=== PATIENT | female | born 1960 | race Caucasian/White ===

== ENCOUNTER → 2016-04-23 | Outpatient (CLI) | payer OTHER ==
[2016-04-23 19:12] LABS: BASO # 0.1 K/mm3 (0.0-0.2); BASO % 1.5 % (0.0-1.0); EOS # 0.4 K/mm3 (0.0-0.50); EOS % 5.1 % (0.0-3.0); LARGE UNSTAINED CELL # 0.2 K/mm3 (0.0-0.4); LYMPH # 1.9 K/mm3 (1.5-4.5); LYMPH % 20.3 % (24.0-44.0); MEAN CORPUSCULAR HEMOGLOBIN 27.5 pg (27.0-33.0); MEAN CORPUSCULAR HGB CONC 33.3 g/dl (32.0-36.5); MEAN CORPUSCULAR VOLUME 82.4 fl (80.0-96.0); MONO # 0.4 K/mm3 (0.0-0.8); MONO % 4.9 % (0.0-5.0); NEUTROPHILS # 5.6 K/mm3 (1.8-7.7); NEUTROPHILS % 66.1 % (36.0-66.0); PLATELET COUNT, AUTOMATED 348 k/mm3 (150-450); RED CELL DISTRIBUTION WIDTH 15.1 % (11.5-14.5); WHITE BLOOD COUNT 8.5 K/mm3 (4.0-10.0)
[2016-04-23 19:24] LABS: ALBUMIN/GLOBULIN RATIO 1.21 (1.00-1.93); ALKALINE PHOSPHATASE 81 U/L (45-117); ALT/SGPT 25 U/L (12-78); ANION GAP 9 MEQ/L (8-16); AST/SGOT 25 U/L (15-37); BILIRUBIN,TOTAL 0.6 MG/DL (0.2-1.0); BLOOD UREA NITROGEN 19 MG/DL (7-18); CALCIUM LEVEL 8.9 MG/DL (8.5-10.1); CARBON DIOXIDE LEVEL 26 MEQ/L (21-32); CHLORIDE LEVEL 109 MEQ/L (98-107); CREATININE FOR GFR 0.97 MG/DL (0.55-1.02); GLOMERULAR FILTRATION RATE > 60.0 (>51); GLUCOSE, FASTING 91 MG/DL (70-105); SODIUM LEVEL 144 MEQ/L (136-145); TOTAL PROTEIN 7.3 GM/DL (6.4-8.2)
== END ==
LOC: M WUC 09:27
PROVIDERS: ATTEND Family Medicine
DX: R73.01 Impaired fasting glucose (principal); E55.9 Vitamin D deficiency, unspecified; M19.049 Primary osteoarthritis, unspecified hand

== ENCOUNTER 2016-05-05 15:04 | Emergency (ER) | payer OTHER ==
[2016-05-05] MEDS ORDERED: LIDOCAINE VISCOUS 2% SOLN 15ML UDC As Ordered ONE (16:54)
[2016-05-05] MEDS ORDERED: NORCO, ANEXSIA 5/325MG TABLET (HYDROcodone/ACETAMINOPHEN) As Ordered ONE (16:55)
--- NOTE | 2016-05-05 17:12 | EDDOCDS ---
Nurse's Notes [facility] Name: Heaven Cleveland Age: 56 yrs Sex: Female : 1960 Arrival Date: 05/05/2016 Time: 15:04 Bed TR2 Private MD: Desomnd Gonsales E. Diagnosis: Zoster [herpes zoster] Presentation: 05/05 15:22 Presenting complaint: Patient states: she is being treated for a sinus infection and kcs ear infection - the next day she had white on her tongue - also has sore on her lips and chin - now has a headache. Tongue is covered with more white and is swollen. Adult Sepsis Screening: The patient does not have new or worsening altered mentation. Patient's respiratory rate is less than 22. Systolic blood pressure is greater than 100. Patient has a qSOFA score of 0- Negative Sepsis Screen. Suicide/Homicide risk assessment- the patient denies having any suicidal and/or homicidal ideations and does not present with any other emotional, behavioral or mental health complaints. Status: Patient is not a x ray service technician or dependent. Transition of care: patient was not received from another setting of care. 15:22 Acuity: SANGEETA Level 3 kcs 15:22 Method Of Arrival: Walkin/Carried/Asstd kcs 17:11 This patient has no additional risk factors. [facility] Triage Assessment: 15:28 Headache History: This patient has a history of headaches and the character of this kcs headache is like all previous headaches. General: Appears comfortable, well developed, well nourished, well groomed, Behavior is cooperative, pleasant. Pain: Location: right forehead and into the back of her head Pain currently is 10 out of 10 on a pain scale. HIV screening NA for this visit Offered previously. Neurological: Level of Consciousness is awake, alert. Respiratory: Airway is patent Respiratory effort is even, unlabored, Respiratory pattern is regular, symmetrical. Derm: Skin is intact, is healthy with good turgor, Skin is dry, Skin is normal. Historical: - Allergies: Tramadol HCl (heart racing); - Home Meds: 1. aspirin 81 mg Oral tab 1 tab nightly 2. Elmiron 100 mg oral tab 1 cap 3 times per day as needed 3. lotrisone cream twice a day as needed 4. multivitamin Oral tab daily 5. simvastatin 20 mg Oral tab once daily for Hypercholesterolemia 6. Vitamin D Oral 2000 unit daily 7. amoxicillin 875 mg Oral tab 1 tab every 12 hours started 05/03 8. doxy/nysta/hydro/banop syrup 4x a day - started yesterday 9. has not had regular meds in 2 days - PMHx: Diverticulosis; Endometriosis; Hypercholesterolemia; Interstitial Cystitis; Irritable bowel syndrome; UTI's, Frequent; - PSHx: Cholecystectomy (September 2013); Colonoscopy (2010); - Social history: Smoking status: Patient states was never smoker of tobacco. No barriers to communication noted, The patient speaks fluent [place]. - Family history: No immediate family members are acutely ill. - : The pt / caregiver states he / she is not on anticoagulants. Home medication list is obtained from the patient, [employer] import data. - Exposure Risk Screening:: None identified. Screenin:08 Screening information is obtained from the patient. Fall risk: No risks identified. dwg Assistance ADL's: requires no assistance with activities of daily living. Abuse/DV Screen: The patient / caregiver reports he/she is: not in a situation that causes fear, pain or injury. Nutritional screening: No deficits noted. Advance Directives: Currently, there is no health care proxy. There is no active DNR order. There is no living will. There is no Power of Plant Production Worker. Advance directive information has not previously been placed in an [facility] medical record. Further advance directive information is declined. home support is adequate. Assessment: 17:07 General: Appears in no apparent distress, Behavior is cooperative, pleasant. Pain: Pain dwg currently is 5 out of 10 on a pain scale. Neurological: Level of Consciousness is awake, alert, Oriented to person, place, time. Respiratory: Airway is patent Respiratory effort is even, unlabored, Respiratory pattern is regular, symmetrical, Breath sounds are clear bilaterally. Derm: Vital Signs: 15:07 BP 144 / 90; Pulse 108; Resp 20; Temp 98.4(O); Pulse Ox 98% on R/A; Weight 86.18 kg elp (R); Height 5 ft. 5 in. (165.10 cm) (R); Pain 10/10; 16:37 BP 149 / 94; Pulse 106; Resp 18; Temp 99.8(O); Pulse Ox 97% on R/A; Pain 10/10; mdr 15:07 Body Mass Index 31.62 (86.18 kg, 165.10 cm) [facility] Vitals: 15:07 Log In Time: May 05, 2016 at 15:05. [facility] ED Course: 15:06 Patient visited by Didi Renee PCA. elp 15:06 Desmond Gonsales is Private Physician. elp 15:06 Patient moved to Waiting elp 15:07 Patient visited by Didi Renee PCA. elp 15:07 Patient moved to Pre RCE elp 15:25 Triage Initiated kcs 16:11 Patient moved to Triage 1 mdr 16:15 Scott Horvath PA is PHCP. mo1 16:15 Gita Montalvo MD is Attending Physician. mo1 16:36 Patient visited by Scott Horvath PA. mo1 16:37 Vel Deras is Referral Physician. mo1 16:41 Patient visited by Emile Soliz PCA. mdr 16:45 [facility] Payment Agreement was scanned into [employer] and attached to record. gjb 17:06 Patient moved to TR2 [facility] 17:10 No IV's were initiated during this patient's visit. No procedures done that require dwg assistance. 17:11 Patient visited by Michael Montaño RN. dwg 17:11 The patient / caregiver is instructed regarding the plan of care and ED course. dwg Administered Medications: 17:10 Drug: Lidocaine Viscous 15 ml [Lidocaine Viscous 2 % mucosal solution (15 mL)] Route: dwg Mucous Membrane; Site: affected area; 17:10 Drug: valACYclovir 1000 mg [valacyclovir 500 mg tablet (2 tabs)] Route: PO; dwg 17:10 Drug: HYDROcodone-acetaminophen 1 tabs [hydrocodone 5 mg-acetaminophen 325 mg tablet (1 dwg tabs)] Route: PO; Order Results: There are currently no results for this order. Outcome: 16:37 Discharge ordered by Provider. mo1 17:09 Discharge Assessment: Patient awake, alert and oriented x 3. No cognitive and/or dwg functional deficits noted. Patient verbalized understanding of disposition instructions. patient administered narcotics - yes. Pt provided with safe discharge. The following High Risk Discharge criteria are identified: None. Condition: good Condition: stable. No special radiology studies were completed. Property sent home with patient. 17:11 Patient left the ED. dw Signatures: Tara Suarez, RN RN Michael Sandoval RN RN Marilia Heart RN RN Scott Deleon PA PA mo1 Didi Renee, SUPERVISOR IN CIRCUIT TESTING SUPERVISOR IN CIRCUIT TESTING elp Emile Soliz, SUPERVISOR IN CIRCUIT TESTING SUPERVISOR IN CIRCUIT TESTING mdr Mar Nguyen MTDD
--- NOTE | 2016-05-05 17:12 | EDDOCDS ---
Physician Documentation [facility] Name: Heaven Cleveland Age: 56 yrs Sex: Female : 1960 Arrival Date: 05/05/2016 Time: 15:04 Bed TR2 Private MD: Desmond Gonsales E. Disposition: 05/05/16 16:37 Discharged to Home/Self Care. Impression: Zoster [herpes zoster]. - Condition is Stable. - Discharge Instructions: Shingles, Thrush, Adult. - Prescriptions for Lidocaine Viscous - take 1 Teaspoon by BUCCAL route every 6 hours; 200 Teaspoon. Perryman 5- 325 mg Oral Tablet - take 1 tablet by ORAL route every 6 hours As needed MDD: 4 tabs; 20 tablet. Nystatin 100,000 unit/mL Oral Suspension - take 5 milliliter by ORAL route every 6 hours; 120 milliliter. Valtrex 1 g Oral Tablet - take 1 tablet by ORAL route every 8 hours for 7 days; 21 tablet. - Medication Reconciliation, Local Pharmacy Hours, Work Release Form - 3 day form. - Follow up: Vel Deras; When: Call to arrange an appointment; Reason: Wound/Symptom Recheck. - Problem is new. - Symptoms are unchanged. Historical: - Allergies: Tramadol HCl (heart racing); - Home Meds: 1. aspirin 81 mg Oral tab 1 tab nightly 2. Elmiron 100 mg oral tab 1 cap 3 times per day as needed 3. lotrisone cream twice a day as needed 4. multivitamin Oral tab daily 5. simvastatin 20 mg Oral tab once daily for Hypercholesterolemia 6. Vitamin D Oral 2000 unit daily 7. amoxicillin 875 mg Oral tab 1 tab every 12 hours started 05/03 8. doxy/nysta/hydro/banop syrup 4x a day - started yesterday 9. has not had regular meds in 2 days - PMHx: Diverticulosis; Endometriosis; Hypercholesterolemia; Interstitial Cystitis; Irritable bowel syndrome; UTI's, Frequent; - PSHx: Cholecystectomy (September 2013); Colonoscopy (2010); - Social history: Smoking status: Patient states was never smoker of tobacco. No barriers to communication noted, The patient speaks fluent [place]. - Family history: No immediate family members are acutely ill. - : The pt / caregiver states he / she is not on anticoagulants. Home medication list is obtained from the patient, [employer] import data. - Exposure Risk Screening:: None identified. Vital Signs: 05/05 15:07 BP 144 / 90; Pulse 108; Resp 20; Temp 98.4(O); Pulse Ox 98% on R/A; Weight 86.18 kg / elp 189.99 lbs (R); Height 5 ft. 5 in. (165.10 cm) (R); Pain 10/10; 16:37 BP 149 / 94; Pulse 106; Resp 18; Temp 99.8(O); Pulse Ox 97% on R/A; Pain 10/10; mdr 15:07 Body Mass Index 31.62 (86.18 kg, 165.10 cm) elp MDM: 16:36 Lidocaine Viscous Liquid 2 % 15 ml Mucous Membrane in affected area once ordered. mo1 16:36 valACYclovir 1000 mg PO once ordered. mo1 16:36 HYDROcodone-acetaminophen 5 mg-325 mg 1 tabs PO once ordered. mo1 16:42 Financial registration complete. ryan 16:45 [facility] Payment Agreement was scanned into [employer] and attached to record. gjb Administered Medications: 17:10 Drug: Lidocaine Viscous 15 ml [Lidocaine Viscous 2 % mucosal solution (15 mL)] Route: dwg Mucous Membrane; Site: affected area; 17:10 Drug: valACYclovir 1000 mg [valacyclovir 500 mg tablet (2 tabs)] Route: PO; dwg 17:10 Drug: HYDROcodone-acetaminophen 1 tabs [hydrocodone 5 mg-acetaminophen 325 mg tablet (1 dwg tabs)] Route: PO; Signatures: Tara Suarez RN RN kcs Greene, Daniel, RN RN Scott Cardenas PA PA mo1 Mar Nguyen The chart was reviewed and I authenticate all verbal orders and agree with the evaluation and treatment provided.Attachments: 16:45 [facility] [place] ryan [facility]
[2016-05-06] MEDS ORDERED: LOTRCRE TOP (08:41)
[2016-05-06] MEDS ORDERED: ASPI81TA85 PO (08:41)
[2016-05-06] MEDS ORDERED: LIDVISCBTL SSP (08:41)
[2016-05-06] MEDS ORDERED: PENT10CA PO (08:41)
[2016-05-06] MEDS ORDERED: NORC5TAB PO (08:41)
[2016-05-06] MEDS ORDERED: VITA20008 PO (08:41)
[2016-05-06] MEDS ORDERED: VITMTA PO (08:41)
[2016-05-06] MEDS ORDERED: VALT1TAB PO (08:41)
[2016-05-06] MEDS ORDERED: SIMV20TA2 PO (08:41)
[2016-05-06] MEDS ORDERED: NYST50SS SS (08:41)
[2016-05-06] MEDS ORDERED: [UNRECOGNIZED DRUG - CODE] INJ (08:45)
--- NOTE | 2016-05-07 18:13 | EDDOCDS ---
Nurse's Notes [facility] Name: Heaven Cleveland Age: 56 yrs Sex: Female : 1960 Arrival Date: 05/05/2016 Time: 15:04 Bed TR2 Private MD: Desmond Gonsales E. Diagnosis: Zoster [herpes zoster] Presentation: 05/05 15:22 Presenting complaint: Patient states: she is being treated for a sinus infection and kcs ear infection - the next day she had white on her tongue - also has sore on her lips and chin - now has a headache. Tongue is covered with more white and is swollen. Adult Sepsis Screening: The patient does not have new or worsening altered mentation. Patient's respiratory rate is less than 22. Systolic blood pressure is greater than 100. Patient has a qSOFA score of 0- Negative Sepsis Screen. Suicide/Homicide risk assessment- the patient denies having any suicidal and/or homicidal ideations and does not present with any other emotional, behavioral or mental health complaints. Status: Patient is not a dining service inspector or dependent. Transition of care: patient was not received from another setting of care. 15:22 Acuity: SANGEETA Level 3 kcs 15:22 Method Of Arrival: Walkin/Carried/Asstd kcs 17:11 This patient has no additional risk factors. [facility] Triage Assessment: 15:28 Headache History: This patient has a history of headaches and the character of this kcs headache is like all previous headaches. General: Appears comfortable, well developed, well nourished, well groomed, Behavior is cooperative, pleasant. Pain: Location: right forehead and into the back of her head Pain currently is 10 out of 10 on a pain scale. HIV screening NA for this visit Offered previously. Neurological: Level of Consciousness is awake, alert. Respiratory: Airway is patent Respiratory effort is even, unlabored, Respiratory pattern is regular, symmetrical. Derm: Skin is intact, is healthy with good turgor, Skin is dry, Skin is normal. Historical: - Allergies: Tramadol HCl (heart racing); - Home Meds: 1. aspirin 81 mg Oral tab 1 tab nightly 2. Elmiron 100 mg oral tab 1 cap 3 times per day as needed 3. lotrisone cream twice a day as needed 4. multivitamin Oral tab daily 5. simvastatin 20 mg Oral tab once daily for Hypercholesterolemia 6. Vitamin D Oral 2000 unit daily 7. amoxicillin 875 mg Oral tab 1 tab every 12 hours started 05/03 8. doxy/nysta/hydro/banop syrup 4x a day - started yesterday 9. has not had regular meds in 2 days - PMHx: Diverticulosis; Endometriosis; Hypercholesterolemia; Interstitial Cystitis; Irritable bowel syndrome; UTI's, Frequent; - PSHx: Cholecystectomy (September 2013); Colonoscopy (2010); - Social history: Smoking status: Patient states was never smoker of tobacco. No barriers to communication noted, The patient speaks fluent East Timorese. - Family history: No immediate family members are acutely ill. - : The pt / caregiver states he / she is not on anticoagulants. Home medication list is obtained from the patient, [employer] import data. - Exposure Risk Screening:: None identified. Screenin:08 Screening information is obtained from the patient. Fall risk: No risks identified. dwg Assistance ADL's: requires no assistance with activities of daily living. Abuse/DV Screen: The patient / caregiver reports he/she is: not in a situation that causes fear, pain or injury. Nutritional screening: No deficits noted. Advance Directives: Currently, there is no health care proxy. There is no active DNR order. There is no living will. There is no Power of Damaged Freight Inspector. Advance directive information has not previously been placed in an [facility] medical record. Further advance directive information is declined. home support is adequate. Assessment: 17:07 General: Appears in no apparent distress, Behavior is cooperative, pleasant. Pain: Pain dwg currently is 5 out of 10 on a pain scale. Neurological: Level of Consciousness is awake, alert, Oriented to person, place, time. Respiratory: Airway is patent Respiratory effort is even, unlabored, Respiratory pattern is regular, symmetrical, Breath sounds are clear bilaterally. Derm: Vital Signs: 15:07 BP 144 / 90; Pulse 108; Resp 20; Temp 98.4(O); Pulse Ox 98% on R/A; Weight 86.18 kg elp (R); Height 5 ft. 5 in. (165.10 cm) (R); Pain 10/10; 16:37 BP 149 / 94; Pulse 106; Resp 18; Temp 99.8(O); Pulse Ox 97% on R/A; Pain 10/10; mdr 15:07 Body Mass Index 31.62 (86.18 kg, 165.10 cm) [facility] Vitals: 15:07 Log In Time: May 05, 2016 at 15:05. [facility] ED Course: 15:06 Patient visited by Didi Renee, ELYSE. elp 15:06 Desmond Gonsales is Private Physician. elp 15:06 Patient moved to Waiting elp 15:07 Patient visited by Didi Renee PCA. elp 15:07 Patient moved to Pre RCE elp 15:25 Triage Initiated kcs 16:11 Patient moved to Triage 1 mdr 16:15 Scott Horvath PA is PHCP. mo1 16:15 Gita Montalvo MD is Attending Physician. mo1 16:36 Patient visited by Scott Horvath PA. mo1 16:37 Vel Deras is Referral Physician. mo1 16:41 Patient visited by Emile Soliz PCA. mdr 16:45 [facility] [place] was scanned into [employer] and attached to record. gjb 17:06 Patient moved to TR2 [facility] 17:10 No IV's were initiated during this patient's visit. No procedures done that require dwg assistance. 17:11 Patient visited by Michael Montaño RN. dwg 17:11 The patient / caregiver is instructed regarding the plan of care and ED course. g 02 10:46 T-Sheet-- Draft Copy was scanned into [employer] and attached to record. gb Administered Medications: 05/05 17:10 Drug: Lidocaine Viscous 15 ml [Lidocaine Viscous 2 % mucosal solution (15 mL)] Route: dwg Mucous Membrane; Site: affected area; 17:10 Drug: valACYclovir 1000 mg [valacyclovir 500 mg tablet (2 tabs)] Route: PO; dwg 17:10 Drug: HYDROcodone-acetaminophen 1 tabs [hydrocodone 5 mg-acetaminophen 325 mg tablet (1 dwg tabs)] Route: PO; Order Results: There are currently no results for this order. Outcome: 16:37 Discharge ordered by Provider. mo1 17:09 Discharge Assessment: Patient awake, alert and oriented x 3. No cognitive and/or dwg functional deficits noted. Patient verbalized understanding of disposition instructions. patient administered narcotics - yes. Pt provided with safe discharge. The following High Risk Discharge criteria are identified: None. Condition: good Condition: stable. No special radiology studies were completed. Property sent home with patient. 17:11 Patient left the ED. [facility] Signatures: Tara Suarez, RN RN Michael Sandoval RN RN dwg Jobson, Karen, RN RN Olive Amaya, Reg Reg gb Yuliet, Scott, ANAI PA mo1 Didi Renee, HELP DESK ENGINEER HELP DESK ENGINEER sundayp Emile Soliz, HELP DESK ENGINEER HELP DESK ENGINEER Mar Stout Chart Complete MTDD
--- NOTE | 2016-05-07 18:13 | EDDOCDS ---
Physician Documentation [facility] Name: Heaven Cleveland Age: 56 yrs Sex: Female : 1960 Arrival Date: 05/05/2016 Time: 15:04 Bed TR2 Private MD: Desmond Gonsales E. Disposition: 05/05/16 16:37 Discharged to Home/Self Care. Impression: Zoster [herpes zoster]. - Condition is Stable. - Discharge Instructions: Shingles, Thrush, Adult. - Prescriptions for Lidocaine Viscous - take 1 Teaspoon by BUCCAL route every 6 hours; 200 Teaspoon. Secretary 5- 325 mg Oral Tablet - take 1 tablet by ORAL route every 6 hours As needed MDD: 4 tabs; 20 tablet. Nystatin 100,000 unit/mL Oral Suspension - take 5 milliliter by ORAL route every 6 hours; 120 milliliter. Valtrex 1 g Oral Tablet - take 1 tablet by ORAL route every 8 hours for 7 days; 21 tablet. - Medication Reconciliation, Local Pharmacy Hours, Work Release Form - 3 day form. - Follow up: Vel eDras; When: Call to arrange an appointment; Reason: Wound/Symptom Recheck. - Problem is new. - Symptoms are unchanged. Historical: - Allergies: Tramadol HCl (heart racing); - Home Meds: 1. aspirin 81 mg Oral tab 1 tab nightly 2. Elmiron 100 mg oral tab 1 cap 3 times per day as needed 3. lotrisone cream twice a day as needed 4. multivitamin Oral tab daily 5. simvastatin 20 mg Oral tab once daily for Hypercholesterolemia 6. Vitamin D Oral 2000 unit daily 7. amoxicillin 875 mg Oral tab 1 tab every 12 hours started 05/03 8. doxy/nysta/hydro/banop syrup 4x a day - started yesterday 9. has not had regular meds in 2 days - PMHx: Diverticulosis; Endometriosis; Hypercholesterolemia; Interstitial Cystitis; Irritable bowel syndrome; UTI's, Frequent; - PSHx: Cholecystectomy (September 2013); Colonoscopy (2010); - Social history: Smoking status: Patient states was never smoker of tobacco. No barriers to communication noted, The patient speaks fluent Belizean. - Family history: No immediate family members are acutely ill. - : The pt / caregiver states he / she is not on anticoagulants. Home medication list is obtained from the patient, [email or web address] import data. - Exposure Risk Screening:: None identified. Vital Signs: 05/05 15:07 BP 144 / 90; Pulse 108; Resp 20; Temp 98.4(O); Pulse Ox 98% on R/A; Weight 86.18 kg / elp 189.99 lbs (R); Height 5 ft. 5 in. (165.10 cm) (R); Pain 10/10; 16:37 BP 149 / 94; Pulse 106; Resp 18; Temp 99.8(O); Pulse Ox 97% on R/A; Pain 10/10; mdr 15:07 Body Mass Index 31.62 (86.18 kg, 165.10 cm) elp MDM: 16:36 Lidocaine Viscous Liquid 2 % 15 ml Mucous Membrane in affected area once ordered. mo1 16:36 valACYclovir 1000 mg PO once ordered. mo1 16:36 HYDROcodone-acetaminophen 5 mg-325 mg 1 tabs PO once ordered. mo1 16:42 Financial registration complete. [facility] 16:45 [facility] Payment Agreement was scanned into [employer] and attached to record. [facility] 05/06 10:46 T-Sheet-- Draft Copy was scanned into [employer] and attached to record. gb Administered Medications: 05/05 17:10 Drug: Lidocaine Viscous 15 ml [Lidocaine Viscous 2 % mucosal solution (15 mL)] Route: dwg Mucous Membrane; Site: affected area; 17:10 Drug: valACYclovir 1000 mg [valacyclovir 500 mg tablet (2 tabs)] Route: PO; g 17:10 Drug: HYDROcodone-acetaminophen 1 tabs [hydrocodone 5 mg-acetaminophen 325 mg tablet (1 dwg tabs)] Route: PO; Signatures: Tara Suarez RN RN kcs Greene, Daniel, RN RN dwg Barnhardt, Gloria, Todd Reg Scott Fields PA PA mo1 Mar Nguyen The chart was reviewed and I authenticate all verbal orders and agree with the evaluation and treatment provided.Attachments: 16:45 [facility] Payment Agreement [facility] 05/06 10:46 T-Sheet-- Draft Copy gb Chart Complete MTDD
--- NOTE | 2016-05-07 18:13 | EDDOCDS ---
Physician Documentation [facility] Name: Heaven Cleveland Age: 56 yrs Sex: Female : 1960 Arrival Date: 05/05/2016 Time: 15:04 Bed TR2 Private MD: Desmond Gonsales E. Disposition: 05/05/16 16:37 Discharged to Home/Self Care. Impression: Zoster [herpes zoster]. - Condition is Stable. - Discharge Instructions: Shingles, Thrush, Adult. - Prescriptions for Lidocaine Viscous - take 1 Teaspoon by BUCCAL route every 6 hours; 200 Teaspoon. Chadwick 5- 325 mg Oral Tablet - take 1 tablet by ORAL route every 6 hours As needed MDD: 4 tabs; 20 tablet. Nystatin 100,000 unit/mL Oral Suspension - take 5 milliliter by ORAL route every 6 hours; 120 milliliter. Valtrex 1 g Oral Tablet - take 1 tablet by ORAL route every 8 hours for 7 days; 21 tablet. - Medication Reconciliation, Local Pharmacy Hours, Work Release Form - 3 day form. - Follow up: Vel Deras; When: Call to arrange an appointment; Reason: Wound/Symptom Recheck. - Problem is new. - Symptoms are unchanged. Historical: - Allergies: Tramadol HCl (heart racing); - Home Meds: 1. aspirin 81 mg Oral tab 1 tab nightly 2. Elmiron 100 mg oral tab 1 cap 3 times per day as needed 3. lotrisone cream twice a day as needed 4. multivitamin Oral tab daily 5. simvastatin 20 mg Oral tab once daily for Hypercholesterolemia 6. Vitamin D Oral 2000 unit daily 7. amoxicillin 875 mg Oral tab 1 tab every 12 hours started 05/03 8. doxy/nysta/hydro/banop syrup 4x a day - started yesterday 9. has not had regular meds in 2 days - PMHx: Diverticulosis; Endometriosis; Hypercholesterolemia; Interstitial Cystitis; Irritable bowel syndrome; UTI's, Frequent; - PSHx: Cholecystectomy (September 2013); Colonoscopy (2010); - Social history: Smoking status: Patient states was never smoker of tobacco. No barriers to communication noted, The patient speaks fluent [place]. - Family history: No immediate family members are acutely ill. - : The pt / caregiver states he / she is not on anticoagulants. Home medication list is obtained from the patient, [employer] import data. - Exposure Risk Screening:: None identified. Vital Signs: 05/05 15:07 BP 144 / 90; Pulse 108; Resp 20; Temp 98.4(O); Pulse Ox 98% on R/A; Weight 86.18 kg / elp 189.99 lbs (R); Height 5 ft. 5 in. (165.10 cm) (R); Pain 10/10; 16:37 BP 149 / 94; Pulse 106; Resp 18; Temp 99.8(O); Pulse Ox 97% on R/A; Pain 10/10; mdr 15:07 Body Mass Index 31.62 (86.18 kg, 165.10 cm) elp MDM: 16:36 Lidocaine Viscous Liquid 2 % 15 ml Mucous Membrane in affected area once ordered. mo1 16:36 valACYclovir 1000 mg PO once ordered. mo1 16:36 HYDROcodone-acetaminophen 5 mg-325 mg 1 tabs PO once ordered. mo1 16:42 Financial registration complete. [facility] 16:45 [facility] Payment Agreement was scanned into [employer] and attached to record. [facility] 05/06 10:46 T-Sheet-- Draft Copy was scanned into [employer] and attached to record. gb Administered Medications: 05/05 17:10 Drug: Lidocaine Viscous 15 ml [Lidocaine Viscous 2 % mucosal solution (15 mL)] Route: dwg Mucous Membrane; Site: affected area; 17:10 Drug: valACYclovir 1000 mg [valacyclovir 500 mg tablet (2 tabs)] Route: PO; g 17:10 Drug: HYDROcodone-acetaminophen 1 tabs [hydrocodone 5 mg-acetaminophen 325 mg tablet (1 dwg tabs)] Route: PO; Signatures: Tara Suarez RN RN kcs Greene, Daniel, RN RN dwg Barnhardt, Gloria, Todd Reg Scott Fields PA PA mo1 Mar Nguyen The chart was reviewed and I authenticate all verbal orders and agree with the evaluation and treatment provided.Attachments: 16:45 [facility] Payment Agreement [facility] 05/06 10:46 T-Sheet-- Draft Copy gb Chart Complete MTDD
== END 2016-05-05 17:11 | disposition home or self-care (01) ==
LOC: M ED 15:04
DX: B02.9 Zoster without complications (principal); R51 Headache; N80.9 Endometriosis, unspecified; E78.00 Pure hypercholesterolemia, unspecified; N30.10 Interstitial cystitis (chronic) without hematuria; K58.9 Irritable bowel syndrome, unspecified; Z87.19 Personal history of other diseases of the digestive system; Z87.440 Personal history of urinary (tract) infections; Z79.899 Other long term (current) drug therapy; Z79.82 Long term (current) use of aspirin; Z88.5 Allergy status to narcotic agent

== ENCOUNTER 2016-05-06 04:50 | Inpatient (IN) | payer OTHER ==
[~2016-05-06] VITALS: Ht 165.1 cm; Wt 88.1 kg
[2016-05-06] MEDS ORDERED: KETOROLAC 30 MG/ML VIAL (J1885) As Ordered ONE (07:24)
[2016-05-06] MEDS ORDERED: PROMETHAZINE INJ 25 MG/ML VIAL (J2550) As Ordered ONE (07:24)
[2016-05-06 07:37] LABS: BASO # 0.1 K/mm3 (0.0-0.2); BASO % 0.6 % (0.0-1.0); EOS # 0.2 K/mm3 (0.0-0.50); EOS % 1.9 % (0.0-3.0); LARGE UNSTAINED CELL # 0.2 K/mm3 (0.0-0.4); LARGE UNSTAINED CELL % 2.4 % (0.0-4.0); LYMPH # 1.1 K/mm3 (1.5-4.5); LYMPH % 11.5 % (24.0-44.0); MEAN CORPUSCULAR HEMOGLOBIN 27.1 pg (27.0-33.0); MEAN CORPUSCULAR VOLUME 82.2 fl (80.0-96.0); MONO # 0.6 K/mm3 (0.0-0.8); MONO % 6.4 % (0.0-5.0); NEUTROPHILS # 7.2 K/mm3 (1.8-7.7); NEUTROPHILS % 77.1 % (36.0-66.0); PLATELET COUNT, AUTOMATED 277 k/mm3 (150-450); WHITE BLOOD COUNT 9.4 K/mm3 (4.0-10.0)
[2016-05-06] MEDS ORDERED: LIDOCAINE VISCOUS 2% SOLN 15ML UDC As Ordered ONE (07:56)
[2016-05-06] MEDS ORDERED: valACYclovir HCL 500 MG TAB As Ordered ONE (07:56)
[2016-05-06] MEDS ORDERED: NYSTATIN 500,000 U/5 ML SUSP UDC PO ONE (08:30)
[2016-05-06 08:31] LABS: ANION GAP 10 MEQ/L (8-16); BLOOD UREA NITROGEN 17 MG/DL (7-18); CALCIUM LEVEL 8.6 MG/DL (8.5-10.1); CARBON DIOXIDE LEVEL 25 MEQ/L (21-32); CHLORIDE LEVEL 105 MEQ/L (98-107); GLOMERULAR FILTRATION RATE > 60.0 (>51); GLUCOSE, FASTING 87 MG/DL (70-105); POTASSIUM SERUM 3.6 MEQ/L (3.5-5.1); SODIUM LEVEL 140 MEQ/L (136-145)
[2016-05-06] MEDS ORDERED: ASPI81TA85 PO (08:41)
[2016-05-06] MEDS ORDERED: LIDVISCBTL SSP (08:41)
[2016-05-06] MEDS ORDERED: NYST50SS SS (08:41)
[2016-05-06] MEDS ORDERED: NORC5TAB PO (08:41)
[2016-05-06] MEDS ORDERED: LOTRCRE TOP (08:41)
[2016-05-06] MEDS ORDERED: VALT1TAB PO (08:41)
[2016-05-06] MEDS ORDERED: VITMTA PO (08:41)
[2016-05-06] MEDS ORDERED: SIMV20TA2 PO (08:41)
[2016-05-06] MEDS ORDERED: VITA20008 PO (08:41)
[2016-05-06] MEDS ORDERED: PENT10CA PO (08:41)
[2016-05-06] MEDS ORDERED: [UNRECOGNIZED DRUG - CODE] INJ (08:45)
[2016-05-06] MEDS ORDERED: TETRACAINE 0.5% OPHTH SOLN 4ML As Ordered ONE (09:38)
[2016-05-06] MEDS ORDERED: FLUORESCEIN OPHTH 1 MG STRIP As Ordered ONE (09:38)
[2016-05-06] MEDS ORDERED: ONDANSETRON 4 MG TAB (S0181) PO PRN (10:00)
[2016-05-06] MEDS ORDERED: BISACODYL 5 MG TAB PO PRN (10:00)
[2016-05-06] MEDS: KCL 20MEQ IN D5/0.45NS 1000ML 1,000 ML IV SCH ×2 (10:15→20:13)
[2016-05-06] MEDS ORDERED: PERCOCET 5MG/325MG TAB As Ordered ONE (10:34)
[2016-05-06] MEDS ORDERED: KCL 20MEQ IN D5/.45NACL 1000ML As Ordered ONE (10:37)
[2016-05-06] MEDS ORDERED: methylPREDNISolone INJ 40 MG/1 ML VIAL (J2920) As Ordered ONE (10:38)
--- NOTE | 2016-05-06 11:34 | HPE ---
DATE OF ADMISSION: 05/06/2016 CHIEF COMPLAINT: Mouth pain. HISTORY: For about 4 days, the patient has had right-sided facial and jaw and maxilla and neck discomfort with a headache along the right church area. She was seen at urgent care, given antibiotic amoxicillin and clavulanic acid. Next day had a mouth lesion, which was on her right tongue, interpreted as early thrush, given nystatin. Symptoms intensified and present to emergency department (ED) yesterday with development of lesions on her chin and recognized then as process being consistent with herpes zoster eruption. It is likely that herpes zoster accounts for the entire sequence beginning with the pain now and the oral mucosal ulcerations and the lesions on her right side of her church and chin. She has significant pain. She is not able to eat or drink, has been able to do so for approximately a day. Although, she has not yet technically dehydrated, it is anticipated because of her inability to eat and drink adequately that dehydration is inevitable and patient therefore admitted to the hospital for supportive hydration to avoid dehydration and to provide pain control and initiation of anti-viral, anti-inflammatory treatment to reduce pain and hopefully, rapidly get her to a state where she is able to take oral and be discharged. She has never had an episode of shingles before. She is 56 and would not yet have had a shingles vaccine. Does have a history of chickenpox of course. She is not immune compromised. At this time, she is not experiencing any visual difficulties, but she does have some mild light sensitivity with the right eye, although it is not sufficiently severe to actually qualify as photophobia technically. Past medical history is remarkable for irritable bowel syndrome, history of diarrhea type with a history of lactose intolerance, hyperlipidemia, type 2B, endometriosis osteoarthritis. History of recurrent urinary tract infection (UTI), some vestibular neuronitis, cholelithiasis and subsequent gallbladder surgery with Dr. Vitale. She had colonoscopy with diverticulosis [place] [address] Gordillo. She has had dilation and curettage done with someone named Dr. Diaz. FAMILY HISTORY: Positive for Alzheimer disease in her mother. She is . Social history also includes the fact that she is not a smoker and no history of alcohol abuse. Reports allergic intolerance in the sense of experiencing side effects of heart racing and nausea with TRAMADOL. REVIEW OF SYSTEMS: She denies dysphagia or heartburn. She does have trouble swallowing because of pain and swelling of her tongue. She has no cough. No dyspnea and no substernal chest pain. No nausea, vomiting, diarrhea, constipation. No current dysuria, frequency, flank pain or vaginal bleeding or discharge. No changes in musculoskeletal symptoms. No recent episode of syncope. Although, she did have an episode of what is interpreted to be vasodepressor syncope in March 2015. This has not been repeated. This problem not recurred. EXAMINATION: Patient is alert, pleasant, oriented, in no apparent distress. Vital signs: Per nursing record, which were reviewed. HEENT: Normocephalic, atraumatic. She has an extensive vesicular rash on the right temporal area and posterior to the ear extending down onto the right side of the chin. No change in hearing is reported. Although she has some mild light sensitivity, she does not have true photophobia. Fluorescein examination after tetracaine installation in the right eye did not reveal any corneal uptake. Oropharynx shows swelling of the tongue with an irregular erosive presence on her tongue and erythema of the palate. She has vesicular rash along the face, along the chin extending up to the area in front of her ear on the right side. No lymphadenopathy is detected. Lungs are clear to auscultation with no wheezing, rales or rhonchi noted. Heart: Regular rhythm. No murmurs, gallops, rubs or point of maximum impulse (PMI) displacement. Abdomen: Obese. No guarding. No mass. No tenderness. Bowel sounds are normoactive. There is no rebound tenderness. No pain with joint manipulation. She has no joint swelling. No joint redness. Skin: Other than the rash as noted on the face and head is unremarkable. Neurologic: She is alert and oriented. Moves all extremities well. Pain over the distribution of the of the fifth cranial nerve primarily involving the third division. No motor deficit detected. LABORATORY DATA: Chemistries and CBC unremarkable. ASSESSMENT: Shingles. She is just under the 72-hour time-frame for benefit from antiviral therapy timing from the onset of first cutaneous from mucosal manifestations. She has substantial inflammation and swelling involving her tongue and I think would likely benefit from systemic steroids at a dose of approximately 1 mg/kg using prednisolone. She has significant pain and will be offered narcotic analgesics. She may benefit from addition of nonsteroidal anti- inflammatory drug. We will see how the initial pain relief with oxycodone treats her. We will provide nystatin suspension because with the steroid use and recent antibiotics she will be at risk for developing thrush, which this oral lesion was mistaken for initially and it is not impossible she might have some thrush at this point. Acyclovir 500 mg three times a day for a total duration of 7 days will be started and continued for 7 days. For treatment of the shingles, usual deep venous thrombosis (DVT) prophylaxis measures will be provided and Zofran will be made available for nausea in case it encountered. Hydration will provide with D5 half normal with 20 mEq KCl per liter initially and adjust it going forward. Since she is able to eat and drink adequately to support her hydration status and pain control is satisfactory, she can be discharged, but anticipate a 3-day hospital stay given the severity of her presentation.
[2016-05-06] MEDS: NYSTATIN 500,000 U/5 ML SUSP UDC PO SCH ×3 (13:00→20:15)
[2016-05-06 14:21] VITALS: BP 155/60
--- NOTE | 2016-05-06 14:24 | EDDOCDS ---
Nurse's Notes [facility] Name: Heaven Cleveland Age: 56 yrs Sex: Female : 1960 Arrival Date: 05/06/2016 Time: 04:50 Bed 5 Private MD: Desmond Gonsales E. Diagnosis: Rash and other nonspecific skin eruption;Headache;Other human herpesvirus infection Presentation: 05/06 04:58 Presenting complaint: Patient states: she has a headache and lips are more swollen and cz tongue is swollen seen here yesterday diagnosis of shingles. pt states pain is getting closer to her eye. Onset: The symptoms/episode began/occurred 1 week(s) ago. This patient has not experienced a previous allergic reaction. Anaphylaxis evaluation, the patient reports or I have noted the following symptoms which indicate a significant risk of anaphylaxis: no signs or symptoms of anaphylaxis were noted. Adult Sepsis Screening: The patient does not have new or worsening altered mentation. Patient's respiratory rate is less than 22. Systolic blood pressure is greater than 100. Patient has a qSOFA score of 0- Negative Sepsis Screen. Suicide/Homicide risk assessment- the patient denies having any suicidal and/or homicidal ideations and does not present with any other emotional, behavioral or mental health complaints. 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 Transition of care: patient was not received from another setting of care. 04:58 Acuity: SANGEETA Level 3 cz 04:58 Method Of Arrival: Walkin/Carried/Asstd cz Triage Assessment: 05:03 General: Appears distressed, uncomfortable. Pain: Location: face Pain currently is 10 cz out of 10 on a pain scale. HIV screening NA for this visit Offered previously. 06:32 Respiratory: Reports no respiratory complaints. ko2 Historical: - Allergies: Tramadol HCl (heart racing); - Home Meds: 1. aspirin 81 mg Oral tab 1 tab nightly 2. Elmiron 100 mg oral tab 1 cap 3 times per day as needed 3. has not had regular meds in 2 days 4. lotrisone cream twice a day as needed 5. multivitamin Oral tab daily 6. simvastatin 20 mg Oral tab once daily for Hypercholesterolemia 7. Vitamin D Oral 2000 unit daily 8. Viscous Lidocaine Oral 9. [place] 5-325 mg Oral tab 10. nystatin 100,000 unit/mL Oral susp 11. Valtrex 1 gram Oral tab - PMHx: Diverticulosis; Endometriosis; Hypercholesterolemia; Interstitial Cystitis; Irritable bowel syndrome; UTI's, Frequent; - PSHx: Cholecystectomy; - Social history: Smoking status: Patient states was never smoker of tobacco. No barriers to communication noted, The patient speaks fluent Icelandic, Speaks appropriately for age. - Family history: Not pertinent. - : The pt / caregiver states he / she is not on anticoagulants. Home medication list is obtained from the patient. - Exposure Risk Screening:: None identified. Screenin:32 Screening information is obtained from the patient. Fall risk: No risks identified. ko2 Assistance ADL's: requires no assistance with activities of daily living. Abuse/DV Screen: The patient / caregiver reports he/she is: not in a situation that causes fear, pain or injury. Nutritional screening: No deficits noted. Advance Directives: Currently, there is no health care proxy. There is no active DNR order. There is no living will. There is no Power of Licensed Practical Vocational Nurse. home support is adequate. Assessment: 05:30 General: Appears slender, Behavior is appropriate for age, cooperative. Pain: Location: ko2 face Pain currently is 10 out of 10 on a pain scale. Neurological: Level of Consciousness is awake, alert. Respiratory: Airway is patent Respiratory effort is even, unlabored, Breath sounds are clear bilaterally. Derm: Rash noted that is red, raised, on face. Musculoskeletal: Range of motion intact in all extremities. 06:33 General: Appears in no apparent distress, Behavior is cooperative. Pain: Location: ko2 face. Neurological: Level of Consciousness is awake, alert. Respiratory: Airway is patent Respiratory effort is even, unlabored. Derm: Rash noted that is red, raised, on face. Musculoskeletal: Range of motion intact in all extremities. 07:33 Reassessment: Patient appears in no apparent distress at this time. Pain: Location: kr3 face Pain currently is 10 out of 10 on a pain scale. Respiratory: Respiratory effort is even, unlabored. 07:53 Reassessment: reports pain on face is decreased but headache is unchanged. kr3 08:36 Reassessment: Patient appears in no apparent distress at this time. complains of kr3 headache 01/03. 09:27 Reassessment: Patient appears in no apparent distress at this time. Dr Baumann in to kr3 evaluate patient. Neurological: Reports headache. 10:21 Reassessment: Patient appears in no apparent distress at this time. resting on kr3 stretcher, at bedside. complains of headache. Patient informed waiting for orders from Dr baumann and bed assignment. Comfortable with this plan. 11:50 Reassessment: Patient appears in no apparent distress at this time. Patient states kr3 feeling better. Pain: Location: headache Pain currently is 3 out of 10 on a pain scale. Respiratory: Respiratory effort is even, unlabored. Derm: Skin is normal. 12:45 Reassessment: Patient appears in no apparent distress at this time. Patient states kr3 feeling better. Pain: Pain currently is 3 out of 10 on a pain scale. 13:46 Reassessment: Patient appears in no apparent distress at this time. Pain: Location: kr3 HEADACHE Pain currently is 3 out of 10 on a pain scale. Neurological: No deficits noted. Respiratory: Respiratory effort is even, unlabored. Derm: Skin is normal. Vital Signs: 05:03 BP 111 / 76; Pulse 105; Resp 16; Temp 99.9; Pulse Ox 96% ; Weight 86.18 kg; Height 5 cz ft. 5 in. (165.10 cm); 08:36 BP 150 / 74; Pulse 66; Resp 16; Pulse Ox 94% on R/A; kr3 12:18 BP 140 / 72; Pulse 52; Resp 16; Temp 99.3(O); Pulse Ox 94% on R/A; Pain 3/10; kr3 05:03 Body Mass Index 31.62 (86.18 kg, 165.10 cm) Vitals: 05:03 Log In Time: May 06, 2016 at 04:50. ED Course: 04:51 Patient visited by Armin Balbuena, Reg. pm4 04:51 Patient moved to Waiting pm4 04:52 Desmond Gonsales is Private Physician. pm4 04:58 Patient moved to Triage 1 cz 05:01 Triage Initiated cz 05:08 Patient moved to Pre RCE cz 05:29 Patient moved to 5 cz 05:53 Patient visited by Wandy Rosales RN. ko2 06:33 Patient visited by Wandy Rosales,EVELYN. ko2 06:59 Gita Montalvo MD is Attending Physician. fg 06:59 Patient visited by Gita Montalvo MD. fg 07:33 Inserted saline lock: 22 gauge in right hand. kr3 08:02 Patient visited by Kylie Hernandez RN. kr3 08:02 Mo Baumann MD is Hospitalizing Provider. fg 08:56 [facility] Payment Agreement was scanned into Plyn[employer] and attached to record. lg 11:50 The patient / caregiver is instructed regarding the plan of care and ED course. Patient alvaro has correct armband on for positive identification. Placed in gown. Bed in low position. Call light in reach. Side rails up X2. 11:50 No procedures done that require assistance. kr3 Administered Medications: 07:30 Drug: ketorolac 15 mg [ketorolac 30 mg/mL (1 mL) injection solution (0.5 mL)] Route: kr3 IVP; Site: right hand; 07:53 Follow up: Response: Pain is decreased kr3 07:30 Drug: NS 0.9% 500 ml [sodium chloride 0.9 % intravenous solution] Route: IV; Rate: kr3 bolus; Site: right hand; 08:36 Follow up: BP 150 / 74; Pulse 66 bpm; Resp 16 bpm; Pulse Ox 94% RA; IV Status: kr3 Completed infusion; IV Intake: 500ml 07:32 Drug: Promethazine 12.5 mg [promethazine 25 mg/mL injection solution (0.5 mL)] Route: kr3 IVP; Site: right hand; 08:02 Follow up: Response: No significant change. kr3 08:02 Drug: valACYclovir 1000 mg [valacyclovir 500 mg tablet (2 tabs)] Route: PO; kr3 08:36 Drug: Lidocaine Viscous 15 ml [Lidocaine Viscous 2 % mucosal solution (15 mL)] Route: kr3 Mucous Membrane; Site: affected area; 08:36 Drug: nystatin Suspension 1 ml Route: PO; kr3 10:35 Drug: oxyCODONE-acetaminophen 1 tabs [oxycodone-acetaminophen 5 mg-325 mg tablet (1 kr3 tabs)] Route: PO; 11:49 Follow up: Response: Pain is decreased kr3 10:50 Drug: Solu-MEDROL 60 mg [Solu-Medrol 500 mg intravenous solution (60 mg)] Route: IVP; kr3 Site: right hand; 11:51 Follow up: Response: No Adverse Reaction kr3 10:50 CANCELLED (Other Intervention Used): D5W 1000 ml IV at 100 mL/hr once kr3 Intake: 08:36 IV: 500.00ml; Total: 500.00ml. kr3 Order Results: Lab Order: CBC with Diff; SPEC'M 05/06/16 07:22 Test: WHITE BLOOD COUNT; Value: 9.4; Range: 4.0-10.0; Units: K/mm3; Status: F Test: RED BLOOD COUNT; Value: 5.67; Range: 4.00-5.40; Abnormal: Above high normal; Units: M/mm3; Status: F Test: HEMOGLOBIN; Value: 15.4; Range: 12.0-16.0; Units: g/dl; Status: F Test: HEMATOCRIT; Value: 46.6; Range: 36.0-47.0; Units: %; Status: F Test: MEAN CORPUSCULAR VOLUME; Value: 82.2; Range: 80.0-96.0; Units: fl; Status: F Test: MEAN CORPUSCULAR HEMOGLOBIN; Value: 27.1; Range: 27.0-33.0; Units: pg; Status: F Test: MEAN CORPUSCULAR HGB CONC; Value: 33.0; Range: 32.0-36.5; Units: g/dl; Status: F Test: RED CELL DISTRIBUTION WIDTH; Value: 14.0; Range: 11.5-14.5; Units: %; Status: F Test: PLATELET COUNT, AUTOMATED; Value: 277; Range: 150-450; Units: k/mm3; Status: F Test: NEUTROPHILS %; Value: 77.1; Range: 36.0-66.0; Abnormal: Above high normal; Units: %; Status: F Test: LYMPH %; Value: 11.5; Range: 24.0-44.0; Abnormal: Below low normal; Units: %; Status: F Test: MONO %; Value: 6.4; Range: 0.0-5.0; Abnormal: Above high normal; Units: %; Status: F Test: EOS %; Value: 1.9; Range: 0.0-3.0; Units: %; Status: F Test: BASO %; Value: 0.6; Range: 0.0-1.0; Units: %; Status: F Test: LARGE UNSTAINED CELL %; Value: 2.4; Range: 0.0-4.0; Units: %; Status: F Test: NEUTROPHILS #; Value: 7.2; Range: 1.8-7.7; Units: K/mm3; Status: F Test: LYMPH #; Value: 1.1; Range: 1.5-4.5; Abnormal: Below low normal; Units: K/mm3; Status: F Test: MONO #; Value: 0.6; Range: 0.0-0.8; Units: K/mm3; Status: F Test: EOS #; Value: 0.2; Range: 0.0-0.50; Units: K/mm3; Status: F Test: BASO #; Value: 0.1; Range: 0.0-0.2; Units: K/mm3; Status: F Test: LARGE UNSTAINED CELL #; Value: 0.2; Range: 0.0-0.4; Units: K/mm3; Status: F Lab Order: Basic Metabolic Profile; [facility] 05/06/16 07:52 Test: GLUCOSE, FASTING; Value: 87; Range: 70-105; Units: MG/DL; Status: F Test: BLOOD UREA NITROGEN; Value: 17; Range: 7-18; Units: MG/DL; Status: F Test: CREATININE FOR GFR; Value: 0.90; Range: 0.55-1.02; Units: MG/DL; Status: F Test: GLOMERULAR FILTRATION RATE; Value: > 60.0; Range: >51; Status: F Test: SODIUM LEVEL; Value: 140; Range: 136-145; Units: MEQ/L; Status: F Test: POTASSIUM SERUM; Value: 3.6; Range: 3.5-5.1; Units: MEQ/L; Status: F Test: CHLORIDE LEVEL; Value: 105; Range: 98-107; Units: MEQ/L; Status: F Test: CARBON DIOXIDE LEVEL; Value: 25; Range: 21-32; Units: MEQ/L; Status: F Test: ANION GAP; Value: 10; Range: 8-16; Units: MEQ/L; Status: F Test: CALCIUM LEVEL; Value: 8.6; Range: 8.5-10.1; Units: MG/DL; Status: F Test Note: ; Units are mL/min/1.73 m2 Chronic Kidney Disease Staging per NKF: Stage I & II GFR >=60 Normal to Mildly Decreased Stage III GFR 30-59 Moderately Decreased Stage IV GFR 15-29 Severely Decreased Stage V GFR <15 Very Little GFR Left ESRD GFR <15 on [employer] Outcome: 08:09 Decision to Hospitalize by Provider. 11:50 No special radiology studies were completed. [facility] 13:45 Discharge Assessment: patient administered narcotics - yes. Patient was admitted to the [address] or transferred to another facility. The following High Risk Discharge criteria are identified: None. Admitted to Med/Surg via stretcher, with chart. Condition: stable. Property :Personal belongings accompany Pt. 14:23 Patient left the ED. [facility] Signatures: Eros Wall RN RN cz Elbert Gray, Reg Reg lg Kylie Hernandez RN RN kr3 Wandy Rosales RN RN ko2 Gita Montalvo MD MD Armin Balbuena, Reg Reg pm4 Corrections: (The following items were deleted from the chart) 05:28 04:58 Presenting complaint: Patient states: she has a headache and lips are more cz swollen and tongue is swollen seen here yesterday diagnosis of shingles cz MTDD
--- NOTE | 2016-05-06 14:24 | EDDOCDS ---
Physician Documentation [facility] Name: Heaven Cleveland Age: 56 yrs Sex: Female : 1960 Arrival Date: 05/06/2016 Time: 04:50 Bed 5 Private MD: Desmond Gonsales E. Disposition: 05/06/16 08:09 Hospitalization ordered by Mo Bernstein for Inpatient Admission. Preliminary diagnosis are Rash and other nonspecific skin eruption, Headache, Other human herpesvirus infection. - Bed requested for [address]. - Status is Inpatient Admission. kr3 - Condition is Stable. - Problem is an acute exacerbation. - Symptoms have worsened. Historical: - Allergies: Tramadol HCl (heart racing); - Home Meds: 1. aspirin 81 mg Oral tab 1 tab nightly 2. Elmiron 100 mg oral tab 1 cap 3 times per day as needed 3. has not had regular meds in 2 days 4. lotrisone cream twice a day as needed 5. multivitamin Oral tab daily 6. simvastatin 20 mg Oral tab once daily for Hypercholesterolemia 7. Vitamin D Oral 2000 unit daily 8. Viscous Lidocaine Oral 9. [place] 5-325 mg Oral tab 10. nystatin 100,000 unit/mL Oral susp 11. Valtrex 1 gram Oral tab - PMHx: Diverticulosis; Endometriosis; Hypercholesterolemia; Interstitial Cystitis; Irritable bowel syndrome; UTI's, Frequent; - PSHx: Cholecystectomy; - Social history: Smoking status: Patient states was never smoker of tobacco. No barriers to communication noted, The patient speaks fluent Belarusian, Speaks appropriately for age. - Family history: Not pertinent. - : The pt / caregiver states he / she is not on anticoagulants. Home medication list is obtained from the patient. - Exposure Risk Screening:: None identified. Vital Signs: 05/06 05:03 BP 111 / 76; Pulse 105; Resp 16; Temp 99.9; Pulse Ox 96% ; Weight 86.18 kg / 189.99 cz lbs; Height 5 ft. 5 in. (165.10 cm); 08:36 BP 150 / 74; Pulse 66; Resp 16; Pulse Ox 94% on R/A; kr3 12:18 BP 140 / 72; Pulse 52; Resp 16; Temp 99.3(O); Pulse Ox 94% on R/A; Pain 3/10; kr3 05:03 Body Mass Index 31.62 (86.18 kg, 165.10 cm) cz MDM: 07:13 IV Saline Lock ordered. fg 07:13 ketorolac 15 mg IVP once ordered. fg 07:13 Promethazine 12.5 mg IVP once; dilute and administer 30-60 minutes ordered. fg 07:13 NS 0.9% 500 ml IV at bolus once ordered. fg 07:15 CBC with Diff Ordered. EDMS 07:15 Basic Metabolic Profile Ordered. EDMS 07:38 BED REQUEST+ADM ordered. EDMS 07:47 Financial registration complete. lg 07:50 Lidocaine Viscous Liquid 2 % 15 ml Mucous Membrane in affected area once ordered. fg 07:50 valACYclovir 1000 mg PO once ordered. fg 07:52 nystatin Suspension 1 ml PO once; administer 1/2 of dose in each side of the mouth fg ordered. 08:02 -Blood Culture (Adults Only), peripheral from different site, or from device/port/PICC fg etc. if present ordered. 08:03 -Blood Culture Ordered. EDMS 08:07 -Blood Culture (Adults Only), peripheral from different site, or from device/port/PICC lbd etc. if present complete. 08:10 BLOOD CULTURES Ordered. EDMS 08:56 [facility] Payment Agreement was scanned into B[employer] and attached to record. lg 10:11 Admission / Observation Status ordered. EDMS 10:11 REGULAR DIET ordered. EDMS 10:34 oxyCODONE-acetaminophen 5 mg-325 mg 1 tabs PO once ordered. kr3 10:50 Solu-MEDROL 60 mg IVP once ordered. kr3 Administered Medications: 07:30 Drug: ketorolac 15 mg [ketorolac 30 mg/mL (1 mL) injection solution (0.5 mL)] Route: kr3 IVP; Site: right hand; 07:53 Follow up: Response: Pain is decreased kr3 07:30 Drug: NS 0.9% 500 ml [sodium chloride 0.9 % intravenous solution] Route: IV; Rate: kr3 bolus; Site: right hand; 08:36 Follow up: BP 150 / 74; Pulse 66 bpm; Resp 16 bpm; Pulse Ox 94% RA; IV Status: kr3 Completed infusion; IV Intake: 500ml 07:32 Drug: Promethazine 12.5 mg [promethazine 25 mg/mL injection solution (0.5 mL)] Route: kr3 IVP; Site: right hand; 08:02 Follow up: Response: No significant change. kr3 08:02 Drug: valACYclovir 1000 mg [valacyclovir 500 mg tablet (2 tabs)] Route: PO; kr3 08:36 Drug: Lidocaine Viscous 15 ml [Lidocaine Viscous 2 % mucosal solution (15 mL)] Route: kr3 Mucous Membrane; Site: affected area; 08:36 Drug: nystatin Suspension 1 ml Route: PO; kr3 10:35 Drug: oxyCODONE-acetaminophen 1 tabs [oxycodone-acetaminophen 5 mg-325 mg tablet (1 kr3 tabs)] Route: PO; 11:49 Follow up: Response: Pain is decreased kr3 10:50 Drug: Solu-MEDROL 60 mg [Solu-Medrol 500 mg intravenous solution (60 mg)] Route: IVP; kr3 Site: right hand; 11:51 Follow up: Response: No Adverse Reaction kr3 10:50 CANCELLED (Other Intervention Used): D5W 1000 ml IV at 100 mL/hr once kr3 Signatures: Dispatcher [employer] EDMS Heaven Mondragon, Traffic Superintendent Unit lbd Eros Wall RN RN cz Elbert Gray, Todd Reg lg Kylie Hernandez RN RN kr3 Wandy Rosales RN RN ko2 Cyndee Bryant RN RN manoj2 Gita Montalvo MD MD fg The chart was reviewed and I authenticate all verbal orders and agree with the evaluation and treatment provided.Corrections: (The following items were deleted from the chart) 10:50 10:50 D5W 1000 ml IV at 100 mL/hr once ordered. kr3 kr3 Attachments: 08:56 [facility] Payment Agreement lg MTDD
[2016-05-06] MEDS: PERCOCET 5MG/325MG TAB PO PRN ×2 (15:21→20:14)
[2016-05-06] MEDS: ENOXAPARIN 40 MG/0.4 ML SYRINGE (J1650) SC SCH (15:21)
[2016-05-06] MEDS: PENTOSAN POLYSULFATE SODIUM 100 MG CAP (ELMIRON) PO SCH ×2 (16:29→20:13)
[2016-05-06] MEDS: FAMCICLOVIR 500 MG TAB PO SCH ×2 (16:29→20:14)
[2016-05-06] MEDS: SIMVASTATIN 20 MG TAB PO SCH (20:14)
[2016-05-06 22:00] VITALS: BP 103/51
[2016-05-06] MEDS: methylPREDNISolone INJ 125 MG/2 ML VIAL (J2930) IV SCH (23:04)
[2016-05-07] MEDS: KCL 20MEQ IN D5/0.45NS 1000ML 1,000 ML IV SCH ×2 (05:50→16:15)
[2016-05-07] MEDS: PERCOCET 5MG/325MG TAB PO PRN ×2 (05:51→21:20)
[2016-05-07 05:56] LABS: BASO % 0.3 % (0.0-1.0); LARGE UNSTAINED CELL # 0.2 K/mm3 (0.0-0.4); LARGE UNSTAINED CELL % 1.5 % (0.0-4.0); LYMPH % 10.8 % (24.0-44.0); MEAN CORPUSCULAR HEMOGLOBIN 27.2 pg (27.0-33.0); MEAN CORPUSCULAR VOLUME 82.6 fl (80.0-96.0); MONO # 0.1 K/mm3 (0.0-0.8); MONO % 1.5 % (0.0-5.0); NEUTROPHILS # 8.1 K/mm3 (1.8-7.7); NEUTROPHILS % 85.9 % (36.0-66.0); PLATELET COUNT, AUTOMATED 294 k/mm3 (150-450); RED CELL DISTRIBUTION WIDTH 14.1 % (11.5-14.5); WHITE BLOOD COUNT 9.4 K/mm3 (4.0-10.0)
[2016-05-07 06:00] VITALS: BP 129/76
[2016-05-07 06:08] LABS: ALBUMIN 3.5 GM/DL (3.2-5.2); ALKALINE PHOSPHATASE 83 U/L (45-117); ALT/SGPT 31 U/L (12-78); ANION GAP 9 MEQ/L (8-16); AST/SGOT 23 U/L (15-37); BILIRUBIN,TOTAL 0.3 MG/DL (0.2-1.0); BLOOD UREA NITROGEN 12 MG/DL (7-18); CALCIUM LEVEL 8.8 MG/DL (8.5-10.1); CARBON DIOXIDE LEVEL 23 MEQ/L (21-32); CHLORIDE LEVEL 110 MEQ/L (98-107); CREATININE FOR GFR 0.86 MG/DL (0.55-1.02); GLOMERULAR FILTRATION RATE > 60.0 (>51); GLUCOSE, FASTING 163 MG/DL (70-105); POTASSIUM SERUM 4.2 MEQ/L (3.5-5.1); SODIUM LEVEL 142 MEQ/L (136-145); TOTAL PROTEIN 7.4 GM/DL (6.4-8.2)
--- NOTE | 2016-05-07 08:45 | IPNPDOC ---
Subjective General Date Seen The patient was seen on 05/07/16. Subjective Chief Complaint/HPI The patient is a 56-year-old female admitted with a reason for visit of Shingles. Events since last encounter Seen and evaluated this morning on 4PAV. Pain and facial erythema improving. Oral intake remains minimal 2/2 to pain. Tongue swelling improved. Right sided headaches persist but are responsive to PRN oxycodone. Continues to report some light sensitivity but not definite photophobia. General: Reports: Normal Appetite, Denies: Chills, Fatigue, Malaise, Night Sweats Constitutional: Denies: Chills, Fever, Night Sweats Eyes: Reports: Other (Mild light sensitivity), Denies: Pain, Vision change Skin: Reports: Rash Pulmonary: Denies: Cough, Dyspnea Cardiovascular: Denies: Chest Pain, Lt Headedness, Orthopnea, Palpitations, Paroxysmal Noc. Dyspnea Gastrointestinal: Denies: Abdominal Pain, Constipation, Diarrhea, Nausea, Vomiting Neurological: Denies: Change in speech, Confusion, Numbness, Weakness Objective Physical Examination General Exam: Positive: Alert, No Acute Distress, Other (Vesicular rash on right side of face, neck, and chin. ) Eye Exam: Positive: EOMI, Other Eye Symptoms (Fluorescin stain performed on w/o uptake), PERRLA ENT Exam: Positive: Tongue Midline (midly enlarged c white crusting) Chest Exam: Positive: Clear to auscultation, Normal air movement Heart Exam: Positive: Normal S1, Normal S2, Rate Normal, Regular Rhythm, Negative: Murmurs, Rubs Abdomen Exam: Positive: Normal bowel sounds, Soft, Negative: Tenderness Skin Exam: Positive: Other skin issue (rash as per "general") Assessment /Plan Problems Problems: (1) Shingles rash Status: Acute Problem Text: D#2/ of famcyclovir, improving symptomatically. Continue c PRN oxycodone as needed for pain. She's receiving IVF for decreased oral intake 2/2 to swollen tongue, which we'll continue for now until her intake improves to prevent dehydration and antiviral tubular crystallization. e- are normal, renal function good. We'll recheck a BMP on Monday if she's still here to periodically monitor e- and renal fn. (2) Tongue swelling Status: Acute Problem Text: Likely related to her shingles. She was started on outpt tx for thrush, so we'll continue it here, as it is unlikely to result in adverse events (3) Irritable bowel syndrome Status: Chronic Problem Text: Stable on bentyl. (4) Impaired fasting glucose Status: Chronic Problem Text: Diet controlled. (5) Hyperlipidemia Status: Chronic Problem Text: Continue statin. Plan/VTE VTE Prophylaxis Ordered?: Yes (lovenox) Plan IVF: Continue Diet: Continue Current Activity: Continue Current VS, I&O, 24H, Fishbone Vital Signs/I&O Vital Signs Date Time Temp Pulse Resp B/P Pulse Ox O2 Delivery O2 Flow Rate FiO2 05/07/16 06:21 18 97 Room Air 05/07/16 06:00 98.0 55 129/76 I&O- Last 24 Hours up to 6 AM 05/07/16 06:00 Intake Total 2040 ml Output Total 900 ml Balance 1140 ml Laboratory Data 24H LABS Laboratory Tests 2 05/07/16 05:30: Blood Urea Nitrogen 12, Creatinine 0.86, Sodium Level 142, Potassium Level 4.2, Chloride Level 110H, Carbon Dioxide Level 23, Calcium Level 8.8, Aspartate Amino Transf (AST/SGOT) 23, Alanine Aminotransferase (ALT/SGPT) 31, Alkaline Phosphatase 83, Total Bilirubin 0.3, Total Protein 7.4, Albumin 3.5, Albumin/ Globulin Ratio 0.90L, Anion Gap 9, White Blood Count 9.4, Red Blood Count 5.12, Hemoglobin 14.0, Hematocrit 42.3, Mean Corpuscular Volume 82.6, Mean Corpuscular Hemoglobin 27.2, Mean Corpuscular Hemoglobin Concent 33.0, Red Cell Distribution Width 14.1, Platelet Count 294, Neutrophils (%) (Auto) 85.9H, Lymphocytes (%) (Auto) 10.8L, Monocytes (%) (Auto) 1.5, Eosinophils (%) (Auto) 0.0, Basophils (%) (Auto) 0.3, Neutrophils # (Auto) 8.1H, Lymphocytes # (Auto) 1.0L, Monocytes # (Auto) 0.1, Eosinophils # (Auto) 0.0, Basophils # (Auto) 0.0, Glomerular Filtration Rate > 60.0, Large Unclassified Cells # 0.2, Large Unclassified Cells % 1.5 CBC/BMP Laboratory Tests 05/07/16 05:30 Calcium Level 8.8, Aspartate Amino Transf (AST/SGOT) 23, Alanine Aminotransferase (ALT/SGPT) 31, Alkaline Phosphatase 83, Total Bilirubin 0.3, Total Protein 7.4, Albumin 3.5, Red Blood Count 5.12, Mean Corpuscular Volume 82.6, Mean Corpuscular Hemoglobin 27.2, Mean Corpuscular Hemoglobin Concent 33.0 , Red Cell Distribution Width 14.1, Neutrophils (%) (Auto) 85.9 H, Lymphocytes ( %) (Auto) 10.8 L, Monocytes (%) (Auto) 1.5, Eosinophils (%) (Auto) 0.0, Basophils (%) (Auto) 0.3, Neutrophils # (Auto) 8.1 H, Lymphocytes # (Auto) 1.0 L , Monocytes # (Auto) 0.1, Eosinophils # (Auto) 0.0, Basophils # (Auto) 0.0 Microbiology Microbiology 05/06/16 Blood Culture, Received Pending 05/06/16 Blood Culture, Received Pending GME ATTESTATION GME ATTESTATION My preceptor for this patient encounter was physically present in the building during the encounter and was fully available. As needed, all aspects of the patient interview, examination, medical decision making process, and medical care plan development were reviewed and approved by the preceptor. Preceptor is aware and concurs with the plan as stated in the body of this note and will attest to such by his/her cosignature. ATTENDING NOTE Patient seen and examined. Agree with findings and plan as reviewed and documented by Dr. Aguilar. She has improved dramatically since yesterday. Have not resumed Bentyl. Will wait until she reports that she needs it. Likely discharge tomorrow with continued improvement. REGINO AGUILAR DO May 07, 2016 08:45 Mo Bernstein MD May 07, 2016 08:59
[2016-05-07] MEDS: MAGIC MOUTHWASH SUSPENSION BTL SS PRN ×2 (09:30→13:30)
[2016-05-07] MEDS: PENTOSAN POLYSULFATE SODIUM 100 MG CAP (ELMIRON) PO SCH ×3 (09:30→21:13)
[2016-05-07] MEDS: FAMCICLOVIR 500 MG TAB PO SCH ×3 (09:31→21:13)
[2016-05-07] MEDS: NYSTATIN 500,000 U/5 ML SUSP UDC PO SCH ×4 (09:31→21:13)
[2016-05-07] MEDS: ENOXAPARIN 40 MG/0.4 ML SYRINGE (J1650) SC SCH (09:31)
[2016-05-07] MEDS: methylPREDNISolone INJ 125 MG/2 ML VIAL (J2930) IV SCH ×2 (10:08→21:13)
[2016-05-07 14:00] VITALS: BP 121/73
[2016-05-07] MEDS: SIMVASTATIN 20 MG TAB PO SCH (21:13)
[2016-05-07 22:00] VITALS: BP 128/75
[2016-05-08] MEDS: KCL 20MEQ IN D5/0.45NS 1000ML 1,000 ML IV SCH (01:24)
[2016-05-08 06:00] VITALS: BP 135/67
--- NOTE | 2016-05-08 09:11 | IPNPDOC ---
Subjective General Date Seen The patient was seen on 05/08/16. Subjective Chief Complaint/HPI The patient is a 56-year-old female admitted with a reason for visit of Shingles. Events since last encounter Pt states she is feeling better. Still with some mouth and tongue soreness. Denies CP, SOB, Abd pain. Constitutional: Denies: Chills, Fever Pulmonary: Denies: Dyspnea Cardiovascular: Denies: Chest Pain Gastrointestinal: Denies: Abdominal Pain, Nausea, Vomiting Objective Physical Examination General Exam: Positive: Alert, No Acute Distress, Other (Vesicular rash on right side of face, neck, and chin. ) Eye Exam: Positive: EOMI, Other Eye Symptoms (Fluorescin stain performed on w/o uptake), PERRLA ENT Exam: Positive: Tongue Midline (midly enlarged c white crusting) Chest Exam: Positive: Clear to auscultation, Normal air movement Heart Exam: Positive: Normal S1, Normal S2, Rate Normal, Regular Rhythm, Negative: Murmurs, Rubs Abdomen Exam: Positive: Normal bowel sounds, Soft, Negative: Tenderness Skin Exam: Positive: Other skin issue (rash as per "general") Assessment /Plan Problems Problems: (1) Shingles rash Status: Acute Problem Text: 05/08 - Famcyclovir D3/7. PRN Oxycodone for pain. On Solumedrol 60 mg q12h. Getting IVF. 05/07 - D#2/7 of famcyclovir, improving symptomatically. Continue c PRN oxycodone as needed for pain. She's receiving IVF for decreased oral intake 2 to swollen tongue, which we'll continue for now until her intake improves to prevent dehydration and antiviral tubular crystallization. e- are normal, renal function good. We'll recheck a BMP on Monday if she's still here to periodically monitor e- and renal fn. (2) Tongue swelling Status: Acute Problem Text: Likely related to her shingles. She was started on outpt tx for thrush, so we'll continue it here, as it is unlikely to result in adverse events (3) Irritable bowel syndrome Status: Chronic Problem Text: Stable on bentyl. (4) Impaired fasting glucose Status: Chronic Problem Text: Diet controlled. (5) Hyperlipidemia Status: Chronic Problem Text: Continue statin. Plan/VTE VTE Prophylaxis Ordered?: Yes (lovenox) Plan IVF: Continue Diet: Continue Current Activity: Continue Current VS, I&O, 24H, Fishbone Vital Signs/I&O Vital Signs Date Time Temp Pulse Resp B/P Pulse Ox O2 Delivery O2 Flow Rate FiO2 05/08/16 06:00 97.4 56 18 135/67 96 Room Air I&O- Last 24 Hours up to 6 AM 05/08/16 06:00 Intake Total 3960 ml Output Total 2850 ml Balance 1110 ml Laboratory Data Microbiology Microbiology 05/06/16 Blood Culture - Preliminary, Resulted No growth after 24 hours . All specim... 05/06/16 Blood Culture - Preliminary, Resulted No growth after 24 hours . All specim... Uriel Watkins May 08, 2016 09:11
[2016-05-08] MEDS ORDERED: PRED20TA PO (10:10)
[2016-05-08] MEDS ORDERED: FAMC500T10 PO (10:10)
[2016-05-08] MEDS: ENOXAPARIN 40 MG/0.4 ML SYRINGE (J1650) SC SCH (10:23)
[2016-05-08] MEDS: NYSTATIN 500,000 U/5 ML SUSP UDC PO SCH (10:23)
[2016-05-08] MEDS: FAMCICLOVIR 500 MG TAB PO SCH (10:24)
[2016-05-08] MEDS: PENTOSAN POLYSULFATE SODIUM 100 MG CAP (ELMIRON) PO SCH (10:24)
[2016-05-08] MEDS: methylPREDNISolone INJ 125 MG/2 ML VIAL (J2930) IV SCH (11:43)
--- NOTE | 2016-05-08 15:23 | EDDOCDS ---
Physician Documentation [facility] Name: Heaven Cleveland Age: 56 yrs Sex: Female : 1960 Arrival Date: 05/06/2016 Time: 04:50 Bed 5 Private MD: Desmond Gonsales E. Disposition: 05/06/16 08:09 Hospitalization ordered by Mo Bernstein for Inpatient Admission. Preliminary diagnosis are Rash and other nonspecific skin eruption, Headache, Other human herpesvirus infection. - Bed requested for 4 Procious. - Status is Inpatient Admission. kr3 - Condition is Stable. - Problem is an acute exacerbation. - Symptoms have worsened. Historical: - Allergies: Tramadol HCl (heart racing); - Home Meds: 1. aspirin 81 mg Oral tab 1 tab nightly 2. Elmiron 100 mg oral tab 1 cap 3 times per day as needed 3. has not had regular meds in 2 days 4. lotrisone cream twice a day as needed 5. multivitamin Oral tab daily 6. simvastatin 20 mg Oral tab once daily for Hypercholesterolemia 7. Vitamin D Oral 2000 unit daily 8. Viscous Lidocaine Oral 9. Wirtz 5-325 mg Oral tab 10. nystatin 100,000 unit/mL Oral susp 11. Valtrex 1 gram Oral tab - PMHx: Diverticulosis; Endometriosis; Hypercholesterolemia; Interstitial Cystitis; Irritable bowel syndrome; UTI's, Frequent; - PSHx: Cholecystectomy; - Social history: Smoking status: Patient states was never smoker of tobacco. No barriers to communication noted, The patient speaks fluent Lithuanian, Speaks appropriately for age. - Family history: Not pertinent. - : The pt / caregiver states he / she is not on anticoagulants. Home medication list is obtained from the patient. - Exposure Risk Screening:: None identified. Vital Signs: 05/06 05:03 BP 111 / 76; Pulse 105; Resp 16; Temp 99.9; Pulse Ox 96% ; Weight 86.18 kg / 189.99 cz lbs; Height 5 ft. 5 in. (165.10 cm); 08:36 BP 150 / 74; Pulse 66; Resp 16; Pulse Ox 94% on R/A; kr3 12:18 BP 140 / 72; Pulse 52; Resp 16; Temp 99.3(O); Pulse Ox 94% on R/A; Pain 3/10; kr3 05:03 Body Mass Index 31.62 (86.18 kg, 165.10 cm) cz MDM: 07:13 IV Saline Lock ordered. fg 07:13 ketorolac 15 mg IVP once ordered. fg 07:13 Promethazine 12.5 mg IVP once; dilute and administer 30-60 minutes ordered. fg 07:13 NS 0.9% 500 ml IV at bolus once ordered. fg 07:15 CBC with Diff Ordered. EDMS 07:15 Basic Metabolic Profile Ordered. EDMS 07:38 BED REQUEST+ADM ordered. EDMS 07:47 Financial registration complete. lg 07:50 Lidocaine Viscous Liquid 2 % 15 ml Mucous Membrane in affected area once ordered. fg 07:50 valACYclovir 1000 mg PO once ordered. fg 07:52 nystatin Suspension 1 ml PO once; administer 1/2 of dose in each side of the mouth fg ordered. 08:02 -Blood Culture (Adults Only), peripheral from different site, or from device/port/PICC fg etc. if present ordered. 08:03 -Blood Culture Ordered. EDMS 08:07 -Blood Culture (Adults Only), peripheral from different site, or from device/port/PICC lbd etc. if present complete. 08:10 BLOOD CULTURES Ordered. EDMS 08:56 [facility] [place] was scanned into [employer] and attached to record. lg 10:11 Admission / Observation Status ordered. EDMS 10:11 REGULAR DIET ordered. EDMS 10:34 oxyCODONE-acetaminophen 5 mg-325 mg 1 tabs PO once ordered. kr3 10:50 Solu-MEDROL 60 mg IVP once ordered. kr3 15:00 T-Sheet-- Draft Copy was scanned into [employer]books and attached to record. gb Administered Medications: 07:30 Drug: ketorolac 15 mg [ketorolac 30 mg/mL (1 mL) injection solution (0.5 mL)] Route: kr3 IVP; Site: right hand; 07:53 Follow up: Response: Pain is decreased kr3 07:30 Drug: NS 0.9% 500 ml [sodium chloride 0.9 % intravenous solution] Route: IV; Rate: kr3 bolus; Site: right hand; 08:36 Follow up: BP 150 / 74; Pulse 66 bpm; Resp 16 bpm; Pulse Ox 94% RA; IV Status: kr3 Completed infusion; IV Intake: 500ml 07:32 Drug: Promethazine 12.5 mg [promethazine 25 mg/mL injection solution (0.5 mL)] Route: kr3 IVP; Site: right hand; 08:02 Follow up: Response: No significant change. kr3 08:02 Drug: valACYclovir 1000 mg [valacyclovir 500 mg tablet (2 tabs)] Route: PO; kr3 08:36 Drug: Lidocaine Viscous 15 ml [Lidocaine Viscous 2 % mucosal solution (15 mL)] Route: kr3 Mucous Membrane; Site: affected area; 08:36 Drug: nystatin Suspension 1 ml Route: PO; kr3 10:35 Drug: oxyCODONE-acetaminophen 1 tabs [oxycodone-acetaminophen 5 mg-325 mg tablet (1 kr3 tabs)] Route: PO; 11:49 Follow up: Response: Pain is decreased kr3 10:50 Drug: Solu-MEDROL 60 mg [Solu-Medrol 500 mg intravenous solution (60 mg)] Route: IVP; kr3 Site: right hand; 11:51 Follow up: Response: No Adverse Reaction kr3 10:50 CANCELLED (Other Intervention Used): D5W 1000 ml IV at 100 mL/hr once kr3 Signatures: Dispatcher [employer] EDMS Heaven Mondragon, Technical Operations Vice President Unit lbd Eros Wall RN RN cz Olive Ron, Reg Reg gb Elbert Gray, Reg Reg lg Kylie Hernandez RN RN kr3 Wandy Rosales RN RN ko2 Cyndee Bryant, RN RN manoj2 Gita Montalvo MD MD The chart was reviewed and I authenticate all verbal orders and agree with the evaluation and treatment provided.Corrections: (The following items were deleted from the chart) 10:50 10:50 D5W 1000 ml IV at 100 mL/hr once ordered. kr3 kr3 Attachments: 08:56 [facility] Payment Agreement lg 15:00 T-Sheet-- Draft Copy gb Chart Complete MTDD
--- NOTE | 2016-05-08 15:23 | EDDOCDS ---
Physician Documentation [facility] Name: Heaven Cleveland Age: 56 yrs Sex: Female : 1960 Arrival Date: 05/06/2016 Time: 04:50 Bed 5 Private MD: Desmond Gonsales E. Disposition: 05/06/16 08:09 Hospitalization ordered by Mo Bernstein for Inpatient Admission. Preliminary diagnosis are Rash and other nonspecific skin eruption, Headache, Other human herpesvirus infection. - Bed requested for 4 [place]. - Status is Inpatient Admission. kr3 - Condition is Stable. - Problem is an acute exacerbation. - Symptoms have worsened. Historical: - Allergies: Tramadol HCl (heart racing); - Home Meds: 1. aspirin 81 mg Oral tab 1 tab nightly 2. Elmiron 100 mg oral tab 1 cap 3 times per day as needed 3. has not had regular meds in 2 days 4. lotrisone cream twice a day as needed 5. multivitamin Oral tab daily 6. simvastatin 20 mg Oral tab once daily for Hypercholesterolemia 7. Vitamin D Oral 2000 unit daily 8. Viscous Lidocaine Oral 9. [place] 5-325 mg Oral tab 10. nystatin 100,000 unit/mL Oral susp 11. Valtrex 1 gram Oral tab - PMHx: Diverticulosis; Endometriosis; Hypercholesterolemia; Interstitial Cystitis; Irritable bowel syndrome; UTI's, Frequent; - PSHx: Cholecystectomy; - Social history: Smoking status: Patient states was never smoker of tobacco. No barriers to communication noted, The patient speaks fluent Occitan, Speaks appropriately for age. - Family history: Not pertinent. - : The pt / caregiver states he / she is not on anticoagulants. Home medication list is obtained from the patient. - Exposure Risk Screening:: None identified. Vital Signs: 05/06 05:03 BP 111 / 76; Pulse 105; Resp 16; Temp 99.9; Pulse Ox 96% ; Weight 86.18 kg / 189.99 cz lbs; Height 5 ft. 5 in. (165.10 cm); 08:36 BP 150 / 74; Pulse 66; Resp 16; Pulse Ox 94% on R/A; kr3 12:18 BP 140 / 72; Pulse 52; Resp 16; Temp 99.3(O); Pulse Ox 94% on R/A; Pain 3/10; kr3 05:03 Body Mass Index 31.62 (86.18 kg, 165.10 cm) cz MDM: 07:13 IV Saline Lock ordered. fg 07:13 ketorolac 15 mg IVP once ordered. fg 07:13 Promethazine 12.5 mg IVP once; dilute and administer 30-60 minutes ordered. fg 07:13 NS 0.9% 500 ml IV at bolus once ordered. fg 07:15 CBC with Diff Ordered. EDMS 07:15 Basic Metabolic Profile Ordered. EDMS 07:38 BED REQUEST+ADM ordered. EDMS 07:47 Financial registration complete. lg 07:50 Lidocaine Viscous Liquid 2 % 15 ml Mucous Membrane in affected area once ordered. fg 07:50 valACYclovir 1000 mg PO once ordered. fg 07:52 nystatin Suspension 1 ml PO once; administer 1/2 of dose in each side of the mouth fg ordered. 08:02 -Blood Culture (Adults Only), peripheral from different site, or from device/port/PICC fg etc. if present ordered. 08:03 -Blood Culture Ordered. EDMS 08:07 -Blood Culture (Adults Only), peripheral from different site, or from device/port/PICC lbd etc. if present complete. 08:10 BLOOD CULTURES Ordered. EDMS 08:56 [facility] Payment Agreement was scanned into [employer] and attached to record. lg 10:11 Admission / Observation Status ordered. EDMS 10:11 REGULAR DIET ordered. EDMS 10:34 oxyCODONE-acetaminophen 5 mg-325 mg 1 tabs PO once ordered. kr3 10:50 Solu-MEDROL 60 mg IVP once ordered. kr3 15:00 T-Sheet-- Draft Copy was scanned into [employer] and attached to record. gb Administered Medications: 07:30 Drug: ketorolac 15 mg [ketorolac 30 mg/mL (1 mL) injection solution (0.5 mL)] Route: kr3 IVP; Site: right hand; 07:53 Follow up: Response: Pain is decreased kr3 07:30 Drug: NS 0.9% 500 ml [sodium chloride 0.9 % intravenous solution] Route: IV; Rate: kr3 bolus; Site: right hand; 08:36 Follow up: BP 150 / 74; Pulse 66 bpm; Resp 16 bpm; Pulse Ox 94% RA; IV Status: kr3 Completed infusion; IV Intake: 500ml 07:32 Drug: Promethazine 12.5 mg [promethazine 25 mg/mL injection solution (0.5 mL)] Route: kr3 IVP; Site: right hand; 08:02 Follow up: Response: No significant change. kr3 08:02 Drug: valACYclovir 1000 mg [valacyclovir 500 mg tablet (2 tabs)] Route: PO; kr3 08:36 Drug: Lidocaine Viscous 15 ml [Lidocaine Viscous 2 % mucosal solution (15 mL)] Route: kr3 Mucous Membrane; Site: affected area; 08:36 Drug: nystatin Suspension 1 ml Route: PO; kr3 10:35 Drug: oxyCODONE-acetaminophen 1 tabs [oxycodone-acetaminophen 5 mg-325 mg tablet (1 kr3 tabs)] Route: PO; 11:49 Follow up: Response: Pain is decreased kr3 10:50 Drug: Solu-MEDROL 60 mg [Solu-Medrol 500 mg intravenous solution (60 mg)] Route: IVP; kr3 Site: right hand; 11:51 Follow up: Response: No Adverse Reaction kr3 10:50 CANCELLED (Other Intervention Used): D5W 1000 ml IV at 100 mL/hr once kr3 Signatures: Dispatcher [employer] EDMS Heaven Mondragon, Instructor [employer] lbd Eros Wall RN RN cz Olive Ron, Reg Reg gb Elbert Gray, Reg Reg lg Kylie Hernandez RN RN kr3 Wandy Rosales RN RN ko2 Cyndee Bryant, RN RN manoj2 Gita Montalvo MD MD The chart was reviewed and I authenticate all verbal orders and agree with the evaluation and treatment provided.Corrections: (The following items were deleted from the chart) 10:50 10:50 D5W 1000 ml IV at 100 mL/hr once ordered. kr3 kr3 Attachments: 08:56 [facility] Payment Agreement lg 15:00 T-Sheet-- Draft Copy gb Chart Complete MTDD
--- NOTE | 2016-05-08 15:23 | EDDOCDS ---
Nurse's Notes [facility] Name: Heaven Cleveland Age: 56 yrs Sex: Female : 1960 Arrival Date: 05/06/2016 Time: 04:50 Bed 5 Private MD: Desmond Gonsales E. Diagnosis: Rash and other nonspecific skin eruption;Headache;Other human herpesvirus infection Presentation: 05/06 04:58 Presenting complaint: Patient states: she has a headache and lips are more swollen and cz tongue is swollen seen here yesterday diagnosis of shingles. pt states pain is getting closer to her eye. Onset: The symptoms/episode began/occurred 1 week(s) ago. This patient has not experienced a previous allergic reaction. Anaphylaxis evaluation, the patient reports or I have noted the following symptoms which indicate a significant risk of anaphylaxis: no signs or symptoms of anaphylaxis were noted. Adult Sepsis Screening: The patient does not have new or worsening altered mentation. Patient's respiratory rate is less than 22. Systolic blood pressure is greater than 100. Patient has a qSOFA score of 0- Negative Sepsis Screen. Suicide/Homicide risk assessment- the patient denies having any suicidal and/or homicidal ideations and does not present with any other emotional, behavioral or mental health complaints. 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 Transition of care: patient was not received from another setting of care. 04:58 Acuity: SANGEETA Level 3 cz 04:58 Method Of Arrival: Walkin/Carried/Asstd cz Triage Assessment: 05:03 General: Appears distressed, uncomfortable. Pain: Location: face Pain currently is 10 cz out of 10 on a pain scale. HIV screening NA for this visit Offered previously. 06:32 Respiratory: Reports no respiratory complaints. ko2 Historical: - Allergies: Tramadol HCl (heart racing); - Home Meds: 1. aspirin 81 mg Oral tab 1 tab nightly 2. Elmiron 100 mg oral tab 1 cap 3 times per day as needed 3. has not had regular meds in 2 days 4. lotrisone cream twice a day as needed 5. multivitamin Oral tab daily 6. simvastatin 20 mg Oral tab once daily for Hypercholesterolemia 7. Vitamin D Oral 2000 unit daily 8. Viscous Lidocaine Oral 9. [place] 5-325 mg Oral tab 10. nystatin 100,000 unit/mL Oral susp 11. Valtrex 1 gram Oral tab - PMHx: Diverticulosis; Endometriosis; Hypercholesterolemia; Interstitial Cystitis; Irritable bowel syndrome; UTI's, Frequent; - PSHx: Cholecystectomy; - Social history: Smoking status: Patient states was never smoker of tobacco. No barriers to communication noted, The patient speaks fluent Albanian, Speaks appropriately for age. - Family history: Not pertinent. - : The pt / caregiver states he / she is not on anticoagulants. Home medication list is obtained from the patient. - Exposure Risk Screening:: None identified. Screenin:32 Screening information is obtained from the patient. Fall risk: No risks identified. ko2 Assistance ADL's: requires no assistance with activities of daily living. Abuse/DV Screen: The patient / caregiver reports he/she is: not in a situation that causes fear, pain or injury. Nutritional screening: No deficits noted. Advance Directives: Currently, there is no health care proxy. There is no active DNR order. There is no living will. There is no Power of Line Manager. home support is adequate. Assessment: 05:30 General: Appears slender, Behavior is appropriate for age, cooperative. Pain: Location: ko2 face Pain currently is 10 out of 10 on a pain scale. Neurological: Level of Consciousness is awake, alert. Respiratory: Airway is patent Respiratory effort is even, unlabored, Breath sounds are clear bilaterally. Derm: Rash noted that is red, raised, on face. Musculoskeletal: Range of motion intact in all extremities. 06:33 General: Appears in no apparent distress, Behavior is cooperative. Pain: Location: ko2 face. Neurological: Level of Consciousness is awake, alert. Respiratory: Airway is patent Respiratory effort is even, unlabored. Derm: Rash noted that is red, raised, on face. Musculoskeletal: Range of motion intact in all extremities. 07:33 Reassessment: Patient appears in no apparent distress at this time. Pain: Location: kr3 face Pain currently is 10 out of 10 on a pain scale. Respiratory: Respiratory effort is even, unlabored. 07:53 Reassessment: reports pain on face is decreased but headache is unchanged. kr3 08:36 Reassessment: Patient appears in no apparent distress at this time. complains of kr3 headache 01/03. 09:27 Reassessment: Patient appears in no apparent distress at this time. Dr Baumann in to kr3 evaluate patient. Neurological: Reports headache. 10:21 Reassessment: Patient appears in no apparent distress at this time. resting on kr3 stretcher, at bedside. complains of headache. Patient informed waiting for orders from Dr baumann and bed assignment. Comfortable with this plan. 11:50 Reassessment: Patient appears in no apparent distress at this time. Patient states kr3 feeling better. Pain: Location: headache Pain currently is 3 out of 10 on a pain scale. Respiratory: Respiratory effort is even, unlabored. Derm: Skin is normal. 12:45 Reassessment: Patient appears in no apparent distress at this time. Patient states kr3 feeling better. Pain: Pain currently is 3 out of 10 on a pain scale. 13:46 Reassessment: Patient appears in no apparent distress at this time. Pain: Location: kr3 HEADACHE Pain currently is 3 out of 10 on a pain scale. Neurological: No deficits noted. Respiratory: Respiratory effort is even, unlabored. Derm: Skin is normal. Vital Signs: 05:03 BP 111 / 76; Pulse 105; Resp 16; Temp 99.9; Pulse Ox 96% ; Weight 86.18 kg; Height 5 cz ft. 5 in. (165.10 cm); 08:36 BP 150 / 74; Pulse 66; Resp 16; Pulse Ox 94% on R/A; kr3 12:18 BP 140 / 72; Pulse 52; Resp 16; Temp 99.3(O); Pulse Ox 94% on R/A; Pain 3/10; kr3 05:03 Body Mass Index 31.62 (86.18 kg, 165.10 cm) Vitals: 05:03 Log In Time: May 06, 2016 at 04:50. ED Course: 04:51 Patient visited by Armin Balbuena, Reg. pm4 04:51 Patient moved to Waiting pm4 04:52 Desmond Gonsales is Private Physician. pm4 04:58 Patient moved to Triage 1 cz 05:01 Triage Initiated cz 05:08 Patient moved to Pre RCE cz 05:29 Patient moved to 5 cz 05:53 Patient visited by Wandy Rosales RN. ko2 06:33 Patient visited by Wandy Rosales,EVELYN. ko2 06:59 Gita Montalvo MD is Attending Physician. fg 06:59 Patient visited by Gita Montalvo MD. fg 07:33 Inserted saline lock: 22 gauge in right hand. kr3 08:02 Patient visited by Kylie Hernandez RN. kr3 08:02 Mo Baumann MD is Hospitalizing Provider. fg 08:56 [facility] Payment Agreement was scanned into [employer] and attached to record. lg 11:50 The patient / caregiver is instructed regarding the plan of care and ED course. Patient alvaro has correct armband on for positive identification. Placed in gown. Bed in low position. Call light in reach. Side rails up X2. 11:50 No procedures done that require assistance. kr3 15:00 T-Sheet-- Draft Copy was scanned into [employer] and attached to record. gb Administered Medications: 07:30 Drug: ketorolac 15 mg [ketorolac 30 mg/mL (1 mL) injection solution (0.5 mL)] Route: kr3 IVP; Site: right hand; 07:53 Follow up: Response: Pain is decreased kr3 07:30 Drug: NS 0.9% 500 ml [sodium chloride 0.9 % intravenous solution] Route: IV; Rate: kr3 bolus; Site: right hand; 08:36 Follow up: BP 150 / 74; Pulse 66 bpm; Resp 16 bpm; Pulse Ox 94% RA; IV Status: kr3 Completed infusion; IV Intake: 500ml 07:32 Drug: Promethazine 12.5 mg [promethazine 25 mg/mL injection solution (0.5 mL)] Route: kr3 IVP; Site: right hand; 08:02 Follow up: Response: No significant change. kr3 08:02 Drug: valACYclovir 1000 mg [valacyclovir 500 mg tablet (2 tabs)] Route: PO; kr3 08:36 Drug: Lidocaine Viscous 15 ml [Lidocaine Viscous 2 % mucosal solution (15 mL)] Route: kr3 Mucous Membrane; Site: affected area; 08:36 Drug: nystatin Suspension 1 ml Route: PO; kr3 10:35 Drug: oxyCODONE-acetaminophen 1 tabs [oxycodone-acetaminophen 5 mg-325 mg tablet (1 kr3 tabs)] Route: PO; 11:49 Follow up: Response: Pain is decreased kr3 10:50 Drug: Solu-MEDROL 60 mg [Solu-Medrol 500 mg intravenous solution (60 mg)] Route: IVP; kr3 Site: right hand; 11:51 Follow up: Response: No Adverse Reaction kr3 10:50 CANCELLED (Other Intervention Used): D5W 1000 ml IV at 100 mL/hr once kr3 Intake: 08:36 IV: 500.00ml; Total: 500.00ml. kr3 Order Results: Lab Order: CBC with Diff; SPEC'M 05/06/16 07:22 Test: WHITE BLOOD COUNT; Value: 9.4; Range: 4.0-10.0; Units: K/mm3; Status: F Test: RED BLOOD COUNT; Value: 5.67; Range: 4.00-5.40; Abnormal: Above high normal; Units: M/mm3; Status: F Test: HEMOGLOBIN; Value: 15.4; Range: 12.0-16.0; Units: g/dl; Status: F Test: HEMATOCRIT; Value: 46.6; Range: 36.0-47.0; Units: %; Status: F Test: MEAN CORPUSCULAR VOLUME; Value: 82.2; Range: 80.0-96.0; Units: fl; Status: F Test: MEAN CORPUSCULAR HEMOGLOBIN; Value: 27.1; Range: 27.0-33.0; Units: pg; Status: F Test: MEAN CORPUSCULAR HGB CONC; Value: 33.0; Range: 32.0-36.5; Units: g/dl; Status: F Test: RED CELL DISTRIBUTION WIDTH; Value: 14.0; Range: 11.5-14.5; Units: %; Status: F Test: PLATELET COUNT, AUTOMATED; Value: 277; Range: 150-450; Units: k/mm3; Status: F Test: NEUTROPHILS %; Value: 77.1; Range: 36.0-66.0; Abnormal: Above high normal; Units: %; Status: F Test: LYMPH %; Value: 11.5; Range: 24.0-44.0; Abnormal: Below low normal; Units: %; Status: F Test: MONO %; Value: 6.4; Range: 0.0-5.0; Abnormal: Above high normal; Units: %; Status: F Test: EOS %; Value: 1.9; Range: 0.0-3.0; Units: %; Status: F Test: BASO %; Value: 0.6; Range: 0.0-1.0; Units: %; Status: F Test: LARGE UNSTAINED CELL %; Value: 2.4; Range: 0.0-4.0; Units: %; Status: F Test: NEUTROPHILS #; Value: 7.2; Range: 1.8-7.7; Units: K/mm3; Status: F Test: LYMPH #; Value: 1.1; Range: 1.5-4.5; Abnormal: Below low normal; Units: K/mm3; Status: F Test: MONO #; Value: 0.6; Range: 0.0-0.8; Units: K/mm3; Status: F Test: EOS #; Value: 0.2; Range: 0.0-0.50; Units: K/mm3; Status: F Test: BASO #; Value: 0.1; Range: 0.0-0.2; Units: K/mm3; Status: F Test: LARGE UNSTAINED CELL #; Value: 0.2; Range: 0.0-0.4; Units: K/mm3; Status: F Lab Order: Basic Metabolic Profile; [facility] 05/06/16 07:52 Test: GLUCOSE, FASTING; Value: 87; Range: 70-105; Units: MG/DL; Status: F Test: BLOOD UREA NITROGEN; Value: 17; Range: 7-18; Units: MG/DL; Status: F Test: CREATININE FOR GFR; Value: 0.90; Range: 0.55-1.02; Units: MG/DL; Status: F Test: GLOMERULAR FILTRATION RATE; Value: > 60.0; Range: >51; Status: F Test: SODIUM LEVEL; Value: 140; Range: 136-145; Units: MEQ/L; Status: F Test: POTASSIUM SERUM; Value: 3.6; Range: 3.5-5.1; Units: MEQ/L; Status: F Test: CHLORIDE LEVEL; Value: 105; Range: 98-107; Units: MEQ/L; Status: F Test: CARBON DIOXIDE LEVEL; Value: 25; Range: 21-32; Units: MEQ/L; Status: F Test: ANION GAP; Value: 10; Range: 8-16; Units: MEQ/L; Status: F Test: CALCIUM LEVEL; Value: 8.6; Range: 8.5-10.1; Units: MG/DL; Status: F Test Note: ; Units are mL/min/1.73 m2 Chronic Kidney Disease Staging per NKF: Stage I & II GFR >=60 Normal to Mildly Decreased Stage III GFR 30-59 Moderately Decreased Stage IV GFR 15-29 Severely Decreased Stage V GFR <15 Very Little GFR Left ESRD GFR <15 on GAS FITTER Outcome: 08:09 Decision to Hospitalize by Provider. 11:50 No special radiology studies were completed. [facility] 13:45 Discharge Assessment: patient administered narcotics - yes. Patient was admitted to the [address] or transferred to another facility. The following High Risk Discharge criteria are identified: None. Admitted to Med/Surg via stretcher, with chart. Condition: stable. Property :Personal belongings accompany Pt. 14:23 Patient left the ED. [facility] Signatures: Eros Wall, EVELYN RN cz Olive Ron, Reg Reg gb Elbert Gray, Reg Reg lg Kylie Hernandez RN RN kr3 Wandy RosalesRN RN ko2 Gita Montalvo MD MD Armin Balbuena, Reg Reg pm4 Corrections: (The following items were deleted from the chart) 05:28 04:58 Presenting complaint: Patient states: she has a headache and lips are more cz swollen and tongue is swollen seen here yesterday diagnosis of shingles cz Chart Complete MTDD
--- NOTE | 2016-05-09 07:25 | DSES ---
DATE OF ADMISSION: 05/06/2016 DATE OF DISCHARGE: 05/08/2016 PRIMARY CARE PHYSICIAN: Desmond Gonsales MD ATTENDING PHYSICIAN: Mo Bernstein MD HISTORY OF PRESENT ILLNESS: Heaven Cleveland is a 56-year-old female patient of Dr. Estes, who was admitted with shingles involving the face and tongue. She was admitted for further evaluation and treatment and to start on antivirals and steroids. The patient was also started on IV fluids as she was having some difficulty eating due to mouth and tongue soreness. She received two days of famciclovir and IV Solu-Medrol. She improved symptomatically. She was given some oxycodone as needed for pain. By day three, the patient was feeling well and was looking forward to discharge home. Plan will be to discharge home on famciclovir to complete a 7-day course. She will be given three additional days of oral prednisone. Her tongue swelling has decreased. She will resume her usual home medications. 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 The patient is advised on avoiding carbonated or acidic beverages and she is advised on continuing with soft foods. PHYSICAL EXAMINATION: VITAL SIGNS: Temperature 97.4, pulse 56, respiratory rate 18, blood pressure is 135/67, pulse oximetry 96%. GENERAL: The patient is alert, in no acute distress. The patient has a resolving rash on the right side of her face and neck. Tongue is midline and does not appear significantly swollen. CHEST: Clear to auscultation. No wheezes, rales, rhonchi or crackles. HEART: Regular rate and rhythm. ABDOMEN: Positive bowel sounds, soft, nontender. EXTREMITIES: No edema. MEDICATIONS: - famciclovir 500 mg by mouth three times a day for 5 days - prednisone 60 mg by mouth daily x3 days - acetaminophen 650 mg by mouth every 6 hours pain - hydrocodone one tablet by mouth every 6 hours as needed for pain - vitamin D daily - multivitamin daily - Elmiron 100 mg by mouth three times a day - simvastatin 20 mg by mouth at bedtime (q.h.s.) DISCHARGE INSTRUCTIONS: The patient should remain out of work for a week/until rechecked at office followup visit. The patient is instructed to avoid carbonated or acidic beverages and foods. The patient can continue soft diet. The patient should followup with Dr. Gonsales in a week. Activity as tolerated. DISCHARGE DIAGNOSES: 1. Shingles. 2. Tongue swelling. 3. Irritable bowel syndrome. 4. Impaired fasting glucose. 5. Hyperlipidemia. 6. Interstitial cystitis. edited: 05/09/2016 0731 heather MANN
== END 2016-05-08 13:25 | disposition home or self-care (01) | DRG 596 ==
LOC: M ED 04:50 → M ED INP 09:59 → M MSPAV 14:27
PROVIDERS: ADMIT Family Medicine; ATTEND Family Medicine
DX: B02.9 Zoster without complications (principal); R22.0 Localized swelling, mass and lump, head; E78.5 Hyperlipidemia, unspecified; R73.01 Impaired fasting glucose; K58.9 Irritable bowel syndrome, unspecified; N30.10 Interstitial cystitis (chronic) without hematuria; Z79.899 Other long term (current) drug therapy; Z88.8 Allergy status to other drugs, medicaments and biological substances

== ENCOUNTER → 2016-09-10 | Outpatient (CLI) | payer OTHER ==
[~2016-09-10] MED LIST: AMIT25TA PO; ASPI81TA85 PO; CALC500T49 PO; FAMC500T10 PO; LIDVISCBTL SSP; LOTRCRE TOP; NORC1TAB4 PO; NYST50SS SS; PENT10CA PO; PIRO20CA2 PO; PRED20TA PO; SIMV20TA2 PO; VALT1TAB PO; VITA20008 PO; VITMTA PO; [UNRECOGNIZED DRUG - CODE] INJ
[2016-09-10 20:22] LABS: ALBUMIN 3.8 GM/DL (3.2-5.2); ALBUMIN/GLOBULIN RATIO 1.27 (1.00-1.93); BILIRUBIN,TOTAL 0.4 MG/DL (0.2-1.0); CALCIUM LEVEL 8.9 MG/DL (8.5-10.1); CREATININE FOR GFR 1.11 MG/DL (0.55-1.02); GLOMERULAR FILTRATION RATE 54.1 (>51); PERCENT SATURATION 23.6 % (13.2-37.4); POTASSIUM SERUM 4.1 MEQ/L (3.5-5.1); TOTAL PROTEIN 6.8 GM/DL (6.4-8.2)
== END ==
LOC: M WUC 10:14
PROVIDERS: ATTEND Family Medicine
DX: N18.3 Chronic kidney disease, stage 3 (moderate) (principal); R73.01 Impaired fasting glucose; E78.5 Hyperlipidemia, unspecified; M19.049 Primary osteoarthritis, unspecified hand

== ENCOUNTER → 2016-09-23 | Outpatient (CLI) | payer OTHER ==
[~2016-09-23] VITALS: Ht 165.1 cm; Wt 88.5 kg
[~2016-09-23] MED LIST changes: +LIDOCAINE 2% INJ 100 MG/5 ML SDV (FOR ANES.) As Ordered ONE; +NS 1,000 ML IV ONE; +PROPOFOL 200 MG/20 ML VIAL As Ordered ONE
--- NOTE | 2016-09-23 15:48 | ROOR ---
Patient Name: Heaven Cleveland Procedure Date: 09/23/2016 3:14 PM Date of : 1960 Age: 56 Room: [facility] Gender: Female Note Status: Finalized Procedure: Total Colonoscopy to Cecum Indications: Change in bowel habits Providers: Yonas Gordillo MD Referring MD: Desmond Gonsales MD Requesting Provider: Medicines: Monitored Anesthesia Care Complications: No immediate complications. Procedure: Pre-Anesthesia Assessment: - The heart rate, respiratory rate, oxygen saturations, blood pressure, adequacy of pulmonary ventilation, and response to care were monitored throughout the procedure. The Colonoscope was introduced through the anus and advanced to the cecum, identified by appendiceal orifice and ileocecal valve. The colonoscopy was performed without difficulty. The patient tolerated the procedure well. The quality of the bowel preparation was good. Findings: The perianal and digital rectal examinations were normal. Non-bleeding internal hemorrhoids were found during retroflexion. The hemorrhoids were small and Grade I (internal hemorrhoids that do not prolapse). Scattered small-mouthed diverticula were found in the recto-sigmoid colon, sigmoid colon and descending colon. The exam was otherwise without abnormality on direct and retroflexion views. Impression: - Non-bleeding internal hemorrhoids. - Diverticulosis in the recto-sigmoid colon, in the sigmoid colon and in the descending colon. - The examination was otherwise normal on direct and retroflexion views. - No specimens collected. - The exam was otherwise normal to the cecum. Recommendation: - Patient has a contact number available for emergencies. The signs and symptoms of potential delayed complications were discussed with the patient. Return to normal activities tomorrow. Written discharge instructions were provided to the patient. - High fiber diet. - Discharge patient to home. - Continue present medications. - Repeat colonoscopy in 10 years for screening purposes. - Return to referring physician. - The findings and recommendations were discussed with the patient's family. Yonas Gordillo MD Yonas Gordillo MD 09/23/2016 3:47:55 PM This report has been signed electronically. Number of Addenda: 0 Note Initiated On: 09/23/2016 3:14 PM Estimated Blood Loss: Estimated blood loss: none.
[2016-09-23 16:10] VITALS: BP 121/60
== END | disposition home or self-care (01) ==
LOC: M OPP 13:28
PROVIDERS: ATTEND Internal Medicine Gastroenterology
DX: K64.0 First degree hemorrhoids (principal); K57.30 Diverticulosis of large intestine without perforation or abscess without bleeding; M19.90 Unspecified osteoarthritis, unspecified site; Z79.899 Other long term (current) drug therapy; Z79.82 Long term (current) use of aspirin; Z88.5 Allergy status to narcotic agent

== ENCOUNTER → 2017-03-23 | Outpatient (REF) | payer OTHER ==
[2017-03-23 11:30] LABS: ESTIMATED AVERAGE GLUCOSE 114 MG/DL (60-110)
[2017-03-23 11:45] LABS: ALBUMIN 3.8 GM/DL (3.2-5.2); ALBUMIN/GLOBULIN RATIO 1.09 (1.00-1.93); ALKALINE PHOSPHATASE 81 U/L (45-117); ALT/SGPT 20 U/L (12-78); ANION GAP 5 MEQ/L (8-16); AST/SGOT 21 U/L (7-37); BILIRUBIN,TOTAL 0.5 MG/DL (0.2-1.0); BLOOD UREA NITROGEN 14 MG/DL (7-18); CALCIUM LEVEL 8.9 MG/DL (8.5-10.1); CARBON DIOXIDE LEVEL 31 MEQ/L (21-32); CHLORIDE LEVEL 107 MEQ/L (98-107); CHOLESTEROL LEVEL 132 MG/DL (<200); CREATININE FOR GFR 0.86 MG/DL (0.55-1.02); GLOMERULAR FILTRATION RATE > 60.0 (>51); GLUCOSE, FASTING 85 MG/DL (70-105); SODIUM LEVEL 143 MEQ/L (136-145); TOTAL PROTEIN 7.3 GM/DL (6.4-8.2); TRIGLYCERIDES LEVEL 126 MG/DL (<150)
== END ==
LOC: M SFHCPLAZ 09:19
DX: E78.5 Hyperlipidemia, unspecified (principal); R73.01 Impaired fasting glucose; E55.9 Vitamin D deficiency, unspecified
CPT/HCPCS: 82550

== ENCOUNTER → 2017-10-09 | Outpatient (REF) | payer OTHER ==
[2017-10-09 12:48] LABS: BASO # 0.1 10^3/uL (0.0-0.2); BASO % 1.2 % (0.0-1.0); EOS # 0.5 10^3/uL (0.0-0.50); EOS % 5.9 % (0.0-3.0); HEMATOCRIT 42.2 % (36.0-47.0); IMMATURE GRANULOCYTE % 0.1 % (0-3.0); LYMPH # 2.2 10^3/uL (1.5-4.5); LYMPH % 28.1 % (24.0-44.0); MEAN CORPUSCULAR HGB CONC 33.2 g/dl (32.0-36.5); MEAN CORPUSCULAR VOLUME 84.4 fl (80.0-96.0); MONO # 0.6 10^3/uL (0.0-0.8); MONO % 7.2 % (0.0-5.0); NEUTROPHILS # 4.5 10^3/uL (1.8-7.7); NEUTROPHILS % 57.5 % (36.0-66.0); PLATELET COUNT, AUTOMATED 329 10^3/uL (150-450); RED CELL DISTRIBUTION WIDTH 13.6 % (11.5-14.5); WHITE BLOOD COUNT 7.8 10^3/uL (4.0-10.0)
[2017-10-09 12:51] LABS: APPEARANCE, URINE CLEAR (CLEAR); BACTERIA, URINE AUTO NEGATIVE (NEGATIVE); BILIRUBIN, URINE AUTO NEGATIVE (NEGATIVE); BLOOD, URINE BLOOD NEGATIVE (NEGATIVE); COLOR, URINE YELLOW (YELLOW); GLUCOSE, URINE (UA) AUTO NEGATIVE (NEGATIVE); KETONE, URINE AUTO NEGATIVE (NEGATIVE); LEUKOCYTE ESTERASE, URINE AUTO NEGATIVE (NEGATIVE); NITRITE, URINE AUTO NEGATIVE (NEGATIVE); PROTEIN, URINE AUTO NEGATIVE (NEGATIVE); RBC, URINE AUTO 2 /HPF (0-3); SPECIFIC GRAVITY URINE AUTO 1.008 (1.002-1.035); SQUAMOUS EPITHELIAL CELL UR AU 0 /HPF (0-6); UROBILINOGEN, URINE AUTO 0.2 mg/dL (0.0-2.0); WBC, URINE AUTO 0 /HPF (0-3)
[2017-10-09 13:19] LABS: ALBUMIN 3.9 GM/DL (3.2-5.2); ALBUMIN/GLOBULIN RATIO 1.26 (1.00-1.93); ALKALINE PHOSPHATASE 75 U/L (45-117); ALT/SGPT 22 U/L (12-78); ANION GAP 8 MEQ/L (8-16); AST/SGOT 21 U/L (7-37); BILIRUBIN,TOTAL 0.4 MG/DL (0.2-1.0); BLOOD UREA NITROGEN 12 MG/DL (7-18); CALCIUM LEVEL 9.2 MG/DL (8.5-10.1); CARBON DIOXIDE LEVEL 29 MEQ/L (21-32); CHLORIDE LEVEL 107 MEQ/L (98-107); CREATININE FOR GFR 1.03 MG/DL (0.55-1.30); GLOMERULAR FILTRATION RATE 58.8 (>51); GLUCOSE, FASTING 85 MG/DL (70-100); POTASSIUM SERUM 4.2 MEQ/L (3.5-5.1); SODIUM LEVEL 144 MEQ/L (136-145)
[2017-10-09 13:32] LABS: CREATININE, URINE 77.3 MG/DL; MALB URINE SIEMENS < 5.0 MG/L; MAU/CREAT RATIO 6.4 MCG/MG (0.0-30.0)
[2017-10-09 14:44] LABS: ESTIMATED AVERAGE GLUCOSE 114 MG/DL (60-110); HEMOGLOBIN A1c 5.6 %
[2017-10-11 17:28] LABS: INSULIN LEVEL 14.8 uIU/mL (2.6-24.9)
== END ==
LOC: M SFHCPLAZ 08:22
DX: N18.3 Chronic kidney disease, stage 3 (moderate) (principal); R73.01 Impaired fasting glucose

== ENCOUNTER → 2017-10-14 | Outpatient (CLI) | payer OTHER ==
[2017-10-14 13:01] LABS: BASO # 0.1 10^3/uL (0.0-0.2); BASO % 1.4 % (0.0-1.0); EOS # 0.5 10^3/uL (0.0-0.50); EOS % 5.2 % (0.0-3.0); HEMATOCRIT 39.3 % (36.0-47.0); IMMATURE GRANULOCYTE % 0.1 % (0-3.0); LYMPH # 2.3 10^3/uL (1.5-4.5); LYMPH % 26.4 % (24.0-44.0); MEAN CORPUSCULAR HEMOGLOBIN 27.5 pg (27.0-33.0); MEAN CORPUSCULAR HGB CONC 33.1 g/dl (32.0-36.5); MEAN CORPUSCULAR VOLUME 83.1 fl (80.0-96.0); MONO # 0.7 10^3/uL (0.0-0.8); MONO % 8.4 % (0.0-5.0); NEUTROPHILS # 5.1 10^3/uL (1.8-7.7); NEUTROPHILS % 58.5 % (36.0-66.0); PLATELET COUNT, AUTOMATED 322 10^3/uL (150-450); RED BLOOD COUNT 4.73 10^6/uL (4.00-5.40); RED CELL DISTRIBUTION WIDTH 13.6 % (11.5-14.5); WHITE BLOOD COUNT 8.8 10^3/uL (4.0-10.0)
[2017-10-14 13:07] LABS: URIC ACID 3.9 MG/DL (2.6-6.0)
[2017-10-14 13:23] LABS: ERYTHROCYTE SEDIMENTATION RATE 30 mm/hr (0-30)
== END ==
LOC: M WUC 11:26
DX: M79.672 Pain in left foot (principal)

== ENCOUNTER → 2017-11-16 | Outpatient (REF) | payer OTHER ==
[2017-11-16 17:09] LABS: APPEARANCE, URINE HAZY (CLEAR); BACTERIA, URINE AUTO NEGATIVE (NEGATIVE); BILIRUBIN, URINE AUTO NEGATIVE (NEGATIVE); BLOOD, URINE BLOOD NEGATIVE (NEGATIVE); COLOR, URINE YELLOW (YELLOW); GLUCOSE, URINE (UA) AUTO NEGATIVE (NEGATIVE); KETONE, URINE AUTO NEGATIVE (NEGATIVE); LEUKOCYTE ESTERASE, URINE AUTO NEGATIVE (NEGATIVE); NITRITE, URINE AUTO NEGATIVE (NEGATIVE); PROTEIN, URINE AUTO NEGATIVE (NEGATIVE); RBC, URINE AUTO 2 /HPF (0-3); SPECIFIC GRAVITY URINE AUTO 1.004 (1.002-1.035); SQUAMOUS EPITHELIAL CELL UR AU 0 /HPF (0-6); UROBILINOGEN, URINE AUTO 0.2 mg/dL (0.0-2.0); WBC, URINE AUTO 0 /HPF (0-3)
== END ==
LOC: M LAB REF 16:29
DX: N94.4 Primary dysmenorrhea (principal)

== ENCOUNTER → 2018-01-29 | Outpatient (CLI) | payer OTHER | LOC: M WHC 15:31 | DX: Z12.31 Encounter for screening mammogram for malignant neoplasm of breast (principal); Z78.0 Asymptomatic menopausal state; Z92.29 Personal history of other drug therapy; Z80.3 Family history of malignant neoplasm of breast | CPT/HCPCS: 77067 ==

== ENCOUNTER → 2018-03-17 | Outpatient (CLI) | payer OTHER ==
[~2018-03-17] MED LIST changes: +HEPA10009 INJ; -LIDOCAINE 2% INJ 100 MG/5 ML SDV (FOR ANES.) As Ordered ONE; -NS 1,000 ML IV ONE; -PROPOFOL 200 MG/20 ML VIAL As Ordered ONE; -[UNRECOGNIZED DRUG - CODE] INJ
[2018-03-17 17:17] LABS: ALBUMIN 3.7 GM/DL (3.2-5.2); ALT/SGPT 25 U/L (12-78); BILIRUBIN,TOTAL 0.3 MG/DL (0.2-1.0); BLOOD UREA NITROGEN 10 MG/DL (7-18); C REACTIVE PROTEIN QUANTITATIV < 0.30 MG/DL (0.00-0.30); CALCIUM LEVEL 8.8 MG/DL (8.5-10.1); CARBON DIOXIDE LEVEL 25 MEQ/L (21-32); CHLORIDE LEVEL 109 MEQ/L (98-107); CHOLESTEROL LEVEL 123 MG/DL (<200); CHOLESTEROL RISK RATIO 3.075 (<5); CPK CREATINE PHOSPHOKINASE 92 U/L (26-192); CREATININE FOR GFR 1.02 MG/DL (0.55-1.30); FREE T4 0.77 NG/DL (0.76-1.46); GLOMERULAR FILTRATION RATE 59.3 (>51); GLUCOSE, FASTING 92 MG/DL (70-100); HDL CHOLESTEROL 40 MG/DL (>40); LDL CHOLESTEROL 62 MG/DL (<100); NON-HDL-C 83 MG/DL; POTASSIUM SERUM 4.2 MEQ/L (3.5-5.1); SODIUM LEVEL 142 MEQ/L (136-145); TRIGLYCERIDES LEVEL 103 MG/DL (<150)
[2018-03-17 17:40] LABS: HEMOGLOBIN A1c 6.1 %
[2018-03-19 07:58] LABS: PTH INTACT 41.3 PG/ML (18.5-88.0); TOTAL 25(OH) VITAMIN D 77.6 NG/ML (30.0-100.0)
== END ==
LOC: M WUC 09:09
PROVIDERS: ATTEND Family Medicine
DX: E78.5 Hyperlipidemia, unspecified (principal); R73.01 Impaired fasting glucose; E55.9 Vitamin D deficiency, unspecified

== ENCOUNTER 2018-05-25 16:47 | Emergency (ER) | payer OTHER ==
[~2018-05-25] VITALS: Ht 165.1 cm; Wt 86.8 kg
[2018-05-25] MEDS ORDERED: PANT40TA3 (16:54)
[2018-05-25] MEDS ORDERED: ROSU20TA4 (16:54)
[2018-05-25] MEDS ORDERED: LIDOCAINE 2% MDV 20 ML VIAL SC ONE (17:30)
--- NOTE | 2018-05-25 17:41 | REP ---
Clinical: Crush injury. Technique: AP, lateral, bilateral oblique views of the right fourth digit. Findings: Fracture involving the terminal tuft consistent with crush injury. Mild overlying soft tissue swelling. No subcutaneous emphysema or foreign body. Impression: Terminal tuft fracture consistent with crush injury. Electronically Signed by Stanislaw Johnson MD 05/25/2018 05:32 P
[2018-05-25 18:11] VITALS: BP 110/69
== END 2018-05-25 18:19 | disposition home or self-care (01) ==
LOC: M ED 16:47
DX: S62.604B Fracture of unspecified phalanx of right ring finger, initial encounter for open fracture (principal); W23.0XXA Caught, crushed, jammed, or pinched between moving objects, initial encounter; Y92.008 Other place in unspecified non-institutional (private) residence as the place of occurrence of the external cause; E78.5 Hyperlipidemia, unspecified; Z79.82 Long term (current) use of aspirin; Z88.5 Allergy status to narcotic agent

== ENCOUNTER → 2018-09-15 | Outpatient (CLI) | payer OTHER ==
[~2018-09-15] MED LIST changes: -NORC1TAB4 PO; +NORC1TAB7 PO; +PANT40TA3; +ROSU20TA4
[2018-09-15 14:36] LABS: BASO # 0.1 10^3/uL (0.0-0.2); BASO % 1.2 % (0.0-1.0); EOS # 0.4 10^3/uL (0.0-0.50); EOS % 5.4 % (0.0-3.0); HEMATOCRIT 43.3 % (36.0-47.0); LYMPH # 1.9 10^3/uL (1.5-4.5); LYMPH % 25.7 % (24.0-44.0); MEAN CORPUSCULAR HGB CONC 32.3 g/dl (32.0-36.5); MEAN CORPUSCULAR VOLUME 86.6 fl (80.0-96.0); MONO # 0.5 10^3/uL (0.0-0.8); MONO % 6.3 % (0.0-5.0); NEUTROPHILS # 4.5 10^3/uL (1.8-7.7); NEUTROPHILS % 61.3 % (36.0-66.0); PLATELET COUNT, AUTOMATED 321 10^3/uL (150-450); WHITE BLOOD COUNT 7.3 10^3/uL (4.0-10.0)
[2018-09-15 14:46] LABS: ALBUMIN 3.8 GM/DL (3.2-5.2); BILIRUBIN,TOTAL 0.4 MG/DL (0.2-1.0); CALCIUM LEVEL 9.2 MG/DL (8.5-10.1); CREATININE FOR GFR 1.01 MG/DL (0.55-1.30); GLOMERULAR FILTRATION RATE 59.9 (>51); POTASSIUM SERUM 4.1 MEQ/L (3.5-5.1); TOTAL PROTEIN 7.1 GM/DL (6.4-8.2)
== END ==
LOC: M WUC 08:23
PROVIDERS: ATTEND Family Medicine
DX: N18.3 Chronic kidney disease, stage 3 (moderate) (principal); R73.01 Impaired fasting glucose

== ENCOUNTER → 2019-01-04 | Outpatient (CLI) | payer OTHER ==
[~2019-01-04] MED LIST changes: -ROSU20TA4; +ROSU20TA5
[2019-01-04 20:21] LABS: BASO # 0.1 10^3/uL (0.0-0.2); BASO % 1.1 % (0.0-1.0); EOS # 0.5 10^3/uL (0.0-0.5); EOS % 5.3 % (0.0-3.0); HEMATOCRIT 42.9 % (36.0-47.0); HEMOGLOBIN 14.1 g/dl (12.0-15.5); LYMPH # 2.6 10^3/uL (1.5-5.0); LYMPH % 27.6 % (24.0-44.0); MEAN CORPUSCULAR HEMOGLOBIN 27.9 pg (27.0-33.0); MEAN CORPUSCULAR HGB CONC 32.9 g/dl (32.0-36.5); MEAN CORPUSCULAR VOLUME 84.8 fl (80.0-96.0); MONO # 0.7 10^3/uL (0.0-0.8); MONO % 7.5 % (0.0-5.0); NEUTROPHILS # 5.5 10^3/uL (1.5-8.5); NEUTROPHILS % 58.2 % (36.0-66.0); PLATELET COUNT, AUTOMATED 348 10^3/uL (150-450); RED BLOOD COUNT 5.06 10^6/uL (4.00-5.40); WHITE BLOOD COUNT 9.4 10^3/uL (4.0-10.0)
[2019-01-04 20:49] LABS: ALT/SGPT 26 U/L (12-78); BILIRUBIN,DIRECT 0.1 MG/DL (0.0-0.2); BILIRUBIN,TOTAL 0.5 MG/DL (0.2-1.0); BLOOD UREA NITROGEN 16 MG/DL (7-18); CALCIUM LEVEL 9.8 MG/DL (8.5-10.1); CARBON DIOXIDE LEVEL 28 MEQ/L (21-32); CHLORIDE LEVEL 106 MEQ/L (98-107); CREATININE FOR GFR 0.95 MG/DL (0.55-1.30); GLOMERULAR FILTRATION RATE > 60.0 (>51); GLUCOSE, FASTING 74 MG/DL (70-100); LIPASE 205 U/L (73-393); POTASSIUM SERUM 4.1 MEQ/L (3.5-5.1); SODIUM LEVEL 141 MEQ/L (136-145); TOTAL PROTEIN 7.4 GM/DL (6.4-8.2)
== END ==
LOC: M WUC 18:30
PROVIDERS: ATTEND Family Medicine
DX: R10.13 Epigastric pain (principal)

== ENCOUNTER → 2019-02-05 | Outpatient (CLI) | payer OTHER ==
--- NOTE | 2019-02-05 16:41 | REPMRS ---
Patient History The patient states she had a clinical breast exam in 06/2018. Patient is postmenopausal and had first child at age 35. Family history of breast cancer at age 50 or over in maternal grandmother, breast cancer at age 80 in paternal aunt. Took unspecified hormones for 6 years. Digital Woman Screen Mammo: February 05, 2019 - Exam #: [id number] Bilateral CC and MLO view(s) were taken. Technologist: Marina Miller, Technologist Prior study comparison: January 29, 2018, bilateral digital woman screen mammo performed at [facility]. January 27, 2017, digital woman screen mammo performed at [facility]. January 20, 2016, digital woman screen mammo performed at [facility]. FINDINGS: The breast tissue is heterogeneously dense. This may lower the sensitivity of mammography. There is a moderate amount of heterogeneously dense fibroglandular tissue which is fairly symmetric. There is no interval development of dominant mass, architectural distortion, or grouped microcalcification typical of malignancy. There has been no change in the appearance of the mammogram from the prior studies. 3-D tomosynthesis shows no additional findings. Assessment: BI-RADS/ACR category 1 mammogram. Negative Mammogram. Recommendation Breast MRI of both breasts in 6 months. Routine screening mammogram of both breasts in 1 year (for women over age 40). This patient's Lifetime Breast Cancer RIsk is estimated at 21.1 %. Annual screening Breast MRI scanniing is recommended for patient's whose lifetime risk assessment is over 20%. This mammogram was interpreted with the aid of an FDA-approved computer-aided dectection system. Electronically Signed By: Jani Arriaga MD 02/05/19 0744
== END ==
LOC: M WHC 15:26
PROVIDERS: ATTEND Nurse Practitioner Women's Health
DX: Z12.31 Encounter for screening mammogram for malignant neoplasm of breast (principal); Z78.0 Asymptomatic menopausal state; Z80.3 Family history of malignant neoplasm of breast

== ENCOUNTER → 2019-02-25 | Outpatient (CLI) | payer OTHER ==
[~2019-02-25] MED LIST changes: -SIMV20TA2 PO; +SIMV20TA22 PO
--- NOTE | 2019-02-25 14:36 | REP ---
Clinical: Pain. Technique: Neutral and frog lateral views of the left hip. Findings: Age-related changes are appreciated. No acute fracture or dislocation. Impression: No acute fracture or dislocation. Electronically Signed by Stanislaw Johnson MD 02/25/2019 02:28 P
--- NOTE | 2019-02-25 14:39 | REP ---
Five views thorax / left ribs: 02/25/2019. Indication: Rib pain. Comparison: None. Findings: The lungs are clear. The cardiac silhouette is unremarkable. There is no pleural effusion or pneumothorax. No lung contusion is present. There is no evidence of displaced rib fracture. Chronic rib deformities on the left are present. Impression: No acute rib fracture, or lung contusion detected. Electronically Signed by Balwinder Thomas DO 02/25/2019 02:30 P
== END ==
LOC: M LRY 13:37
PROVIDERS: ATTEND Nurse Practitioner Family
DX: M25.552 Pain in left hip (principal); R07.81 Pleurodynia

== ENCOUNTER → 2019-03-17 | Outpatient (CLI) | payer OTHER ==
[2019-03-17 13:19] LABS: APPEARANCE, URINE CLEAR (CLEAR); BACTERIA, URINE AUTO NEGATIVE (NEGATIVE); BILIRUBIN, URINE AUTO NEGATIVE (NEGATIVE); BLOOD, URINE BLOOD 2+ (NEGATIVE); COLOR, URINE YELLOW (YELLOW); GLUCOSE, URINE (UA) AUTO NEGATIVE (NEGATIVE); KETONE, URINE AUTO NEGATIVE (NEGATIVE); LEUKOCYTE ESTERASE, URINE AUTO NEGATIVE (NEGATIVE); NITRITE, URINE AUTO NEGATIVE (NEGATIVE); PROTEIN, URINE AUTO NEGATIVE (NEGATIVE); RBC, URINE AUTO 4 /HPF (0-3); SPECIFIC GRAVITY URINE AUTO 1.016 (1.002-1.035); SQUAMOUS EPITHELIAL CELL UR AU 1 /HPF (0-6); UROBILINOGEN, URINE AUTO 0.2 mg/dL (0.0-2.0); WBC, URINE AUTO 1 /HPF (0-3)
[2019-03-17 13:29] LABS: ALBUMIN 4.1 GM/DL (3.2-5.2); BILIRUBIN,TOTAL 0.7 MG/DL (0.2-1.0); CALCIUM LEVEL 9.5 MG/DL (8.5-10.1); CREATININE FOR GFR 1.14 MG/DL (0.55-1.30); GLOMERULAR FILTRATION RATE 51.9 (>51); POTASSIUM SERUM 4.4 MEQ/L (3.5-5.1); TOTAL PROTEIN 7.6 GM/DL (6.4-8.2)
[2019-03-17 13:37] LABS: HEMOGLOBIN A1c 5.9 %
[2019-03-17 14:02] LABS: MALB URINE SIEMENS 11.8 MG/L; MAU/CREAT RATIO 6.8 MCG/MG (0.0-30.0)
[2019-03-18 09:29] LABS: PTH INTACT 46.1 PG/ML (18.5-88.0)
[2019-03-18 09:52] LABS: TOTAL 25(OH) VITAMIN D 75.1 NG/ML (30.0-100.0)
== END ==
LOC: M WUC 09:28
PROVIDERS: ATTEND Family Medicine
DX: R73.01 Impaired fasting glucose (principal); E55.9 Vitamin D deficiency, unspecified

== ENCOUNTER → 2019-05-07 | Outpatient (REF) | payer OTHER ==
[~2019-05-07] MED LIST changes: +FAMC500T PO; -FAMC500T10 PO
[2019-05-07 13:32] LABS: APPEARANCE, URINE CLOUDY (CLEAR); BACTERIA, URINE AUTO NEGATIVE (NEGATIVE); BILIRUBIN, URINE AUTO NEGATIVE (NEGATIVE); BLOOD, URINE BLOOD NEGATIVE (NEGATIVE); COLOR, URINE AMBER (YELLOW); GLUCOSE, URINE (UA) AUTO NEGATIVE (NEGATIVE); KETONE, URINE AUTO NEGATIVE (NEGATIVE); LEUKOCYTE ESTERASE, URINE AUTO NEGATIVE (NEGATIVE); MUCUS, URINE SMALL (NEGATIVE); NITRITE, URINE AUTO NEGATIVE (NEGATIVE); PROTEIN, URINE AUTO NEGATIVE (NEGATIVE); RBC, URINE AUTO 7 /HPF (0-3); SPECIFIC GRAVITY URINE AUTO 1.021 (1.002-1.035); SQUAMOUS EPITHELIAL CELL UR AU 0 /HPF (0-6); UROBILINOGEN, URINE AUTO 0.2 mg/dL (0.0-2.0); WBC, URINE AUTO 1 /HPF (0-3)
== END ==
LOC: M LAB REF 11:52
PROVIDERS: ATTEND Nurse Practitioner Women's Health
DX: R30.0 Dysuria (principal)

== ENCOUNTER → 2019-09-12 | Outpatient (CLI) | payer OTHER ==
[~2019-09-12] MED LIST changes: -AMIT25TA PO; +AMIT25TA17 PO; -ASPI81TA85 PO; +ASPI81TA86 PO; +PANT40TA29; -PANT40TA3
[2019-09-12 11:33] LABS: BASO # 0.1 10^3/uL (0.0-0.2); BASO % 1.2 % (0.0-1.0); EOS # 0.3 10^3/uL (0.0-0.5); EOS % 4.9 % (0.0-3.0); HEMATOCRIT 43.9 % (36.0-47.0); HEMOGLOBIN 14.4 g/dl (12.0-15.5); LYMPH # 2.2 10^3/uL (1.5-5.0); MEAN CORPUSCULAR HEMOGLOBIN 28.5 pg (27.0-33.0); MEAN CORPUSCULAR HGB CONC 32.8 g/dl (32.0-36.5); MEAN CORPUSCULAR VOLUME 86.8 fl (80.0-96.0); MONO # 0.5 10^3/uL (0.0-0.8); MONO % 6.6 % (0.0-5.0); NEUTROPHILS # 3.7 10^3/uL (1.5-8.5); PLATELET COUNT, AUTOMATED 244 10^3/uL (150-450); RED BLOOD COUNT 5.06 10^6/uL (4.00-5.40); WHITE BLOOD COUNT 6.8 10^3/uL (4.0-10.0)
[2019-09-12 12:12] LABS: HEMOGLOBIN A1c 5.9 %
[2019-09-12 12:16] LABS: ALBUMIN 3.8 GM/DL (3.2-5.2); ALT/SGPT 34 U/L (12-78); BILIRUBIN,TOTAL 0.4 MG/DL (0.2-1.0); BLOOD UREA NITROGEN 18 MG/DL (7-18); CALCIUM LEVEL 9.4 MG/DL (8.5-10.1); CARBON DIOXIDE LEVEL 23 MEQ/L (21-32); CHLORIDE LEVEL 108 MEQ/L (98-107); CHOLESTEROL LEVEL 159 MG/DL (<200); CHOLESTEROL RISK RATIO 3.117 (<5); CREATININE FOR GFR 0.98 MG/DL (0.55-1.30); GLOMERULAR FILTRATION RATE > 60.0 (>51); GLUCOSE, FASTING 78 MG/DL (70-100); HDL CHOLESTEROL 51 MG/DL (>40); LDL CHOLESTEROL 83 MG/DL (<100); NON-HDL-C 108 MG/DL; POTASSIUM SERUM 4.3 MEQ/L (3.5-5.1); SODIUM LEVEL 140 MEQ/L (136-145); TRIGLYCERIDES LEVEL 124 MG/DL (<150)
== END ==
LOC: M WUC 09:05
PROVIDERS: ATTEND Family Medicine
DX: R73.01 Impaired fasting glucose (principal)

== ENCOUNTER → 2020-03-15 | Outpatient (CLI) | payer OTHER ==
[~2020-03-15] MED LIST changes: +AMIT25TA PO; -AMIT25TA17 PO
[2020-03-15 15:38] LABS: HEMOGLOBIN A1c 5.6 %
[2020-03-15 15:53] LABS: MALB URINE SIEMENS 14.2 MG/L
[2020-03-15 15:54] LABS: BILIRUBIN,TOTAL 0.5 MG/DL (0.2-1.0); CALCIUM LEVEL 9.2 MG/DL (8.8-10.2); CREATININE FOR GFR 1.09 MG/DL (0.55-1.30); FREE T4 0.71 NG/DL (0.76-1.46); GLOMERULAR FILTRATION RATE 54.5 (>45); THYROID STIMULATING HORMONE 2.19 uIU/ML (0.358-3.740); TOTAL PROTEIN 7.3 GM/DL (6.4-8.2)
[2020-03-16 13:21] LABS: PTH INTACT 41.7 PG/ML (18.5-88.0); TOTAL 25(OH) VITAMIN D 64.8 NG/ML (30.0-100.0)
== END ==
LOC: M WUC 09:00
PROVIDERS: ATTEND Family Medicine
DX: R73.01 Impaired fasting glucose (principal); N18.30 Chronic kidney disease, stage 3 unspecified; E78.5 Hyperlipidemia, unspecified

== ENCOUNTER → 2020-09-14 | Outpatient (CLI) | payer OTHER ==
[~2020-09-14] MED LIST changes: -AMIT25TA PO; +AMIT25TA17 PO
[2020-09-14 10:21] LABS: HEMOGLOBIN A1c 5.7 %
[2020-09-14 11:04] LABS: ALBUMIN 3.6 GM/DL (3.2-5.2); ALT/SGPT 17 U/L (12-78); BILIRUBIN,TOTAL 0.4 MG/DL (0.2-1.0); BLOOD UREA NITROGEN 10 MG/DL (7-18); CALCIUM LEVEL 9.3 MG/DL (8.8-10.2); CARBON DIOXIDE LEVEL 27 MEQ/L (21-32); CHLORIDE LEVEL 107 MEQ/L (98-107); CHOLESTEROL LEVEL 144 MG/DL (<200); CHOLESTEROL RISK RATIO 3.063 (<5); CPK CREATINE PHOSPHOKINASE 118 U/L (26-192); CREATININE FOR GFR 0.89 MG/DL (0.55-1.30); GLOMERULAR FILTRATION RATE > 60.0 (>45); GLUCOSE, FASTING 93 MG/DL (70-100); HDL CHOLESTEROL 47 MG/DL (>40); LDL CHOLESTEROL 68 MG/DL (<100); NON-HDL-C 97 MG/DL; POTASSIUM SERUM 3.9 MEQ/L (3.5-5.1); SODIUM LEVEL 141 MEQ/L (136-145); TOTAL PROTEIN 6.7 GM/DL (6.4-8.2); TRIGLYCERIDES LEVEL 143 MG/DL (<150)
[2020-09-15 23:08] LABS: ANA (HEP2) Negative (.); CYCLIC CITRULLINATED PEPTIDE 4 units (0-19); INSULIN LEVEL 17.7 uIU/mL (2.6-24.9)
== END ==
LOC: M WUC 08:41
PROVIDERS: ATTEND Family Medicine
DX: E78.5 Hyperlipidemia, unspecified (principal); R73.01 Impaired fasting glucose; M19.049 Primary osteoarthritis, unspecified hand

== ENCOUNTER → 2021-03-13 | Outpatient (CLI) | payer OTHER ==
[2021-03-13 09:26] LABS: BASO # 0.1 10^3/uL (0.0-0.2); BASO % 1.6 % (0.0-1.0); EOS # 0.5 10^3/uL (0.0-0.5); EOS % 6.3 % (0.0-3.0); HEMATOCRIT 38.8 % (36.0-47.0); HEMOGLOBIN 12.1 g/dl (12.0-15.5); LYMPH # 1.9 10^3/uL (1.5-5.0); MEAN CORPUSCULAR HEMOGLOBIN 23.9 pg (27.0-33.0); MEAN CORPUSCULAR HGB CONC 31.2 g/dl (32.0-36.5); MEAN CORPUSCULAR VOLUME 76.5 fl (80.0-96.0); MONO # 0.5 10^3/uL (0.0-0.8); MONO % 6.3 % (2.0-8.0); NEUTROPHILS # 4.4 10^3/uL (1.5-8.5); NEUTROPHILS % 59.5 % (36.0-66.0); PLATELET COUNT, AUTOMATED 363 10^3/uL (150-450); RED BLOOD COUNT 5.07 10^6/uL (4.00-5.40); WHITE BLOOD COUNT 7.3 10^3/uL (4.0-10.0)
[2021-03-13 09:45] LABS: HEMOGLOBIN A1c 5.8 %
[2021-03-13 10:06] LABS: ALBUMIN 3.8 GM/DL (3.2-5.2); ALT/SGPT 21 U/L (12-78); BILIRUBIN,TOTAL 0.3 MG/DL (0.2-1.0); BLOOD UREA NITROGEN 10 MG/DL (7-18); CALCIUM LEVEL 9.3 MG/DL (8.8-10.2); CARBON DIOXIDE LEVEL 27 MEQ/L (21-32); CHLORIDE LEVEL 109 MEQ/L (98-107); CREATININE FOR GFR 0.94 MG/DL (0.55-1.30); FREE T4 0.71 NG/DL (0.76-1.46); GLOMERULAR FILTRATION RATE > 60.0 (>45); GLUCOSE, FASTING 94 MG/DL (70-100); POTASSIUM SERUM 3.9 MEQ/L (3.5-5.1); SODIUM LEVEL 144 MEQ/L (136-145); TOTAL PROTEIN 7.3 GM/DL (6.4-8.2)
[2021-03-15 10:17] LABS: PTH INTACT 40.7 PG/ML (18.5-88.0); TOTAL 25(OH) VITAMIN D 77.2 NG/ML (30.0-100.0)
== END ==
LOC: M LAB 08:28
PROVIDERS: ATTEND Family Medicine
DX: E55.9 Vitamin D deficiency, unspecified (principal); R73.01 Impaired fasting glucose; E78.5 Hyperlipidemia, unspecified

== ENCOUNTER → 2021-03-22 | Outpatient (CLI) | payer OTHER ==
[2021-03-22 15:14] LABS: HEMATOCRIT 40.6 % (36.0-47.0); HEMOGLOBIN 12.4 g/dl (12.0-15.5); MEAN CORPUSCULAR HEMOGLOBIN 23.9 pg (27.0-33.0); MEAN CORPUSCULAR HGB CONC 30.5 g/dl (32.0-36.5); MEAN CORPUSCULAR VOLUME 78.4 fl (80.0-96.0); NEUTROPHILS % 62.5 % (36.0-66.0); PLATELET COUNT, AUTOMATED 391 10^3/uL (150-450); RED BLOOD COUNT 5.18 10^6/uL (4.00-5.40); WHITE BLOOD COUNT 8.3 10^3/uL (4.0-10.0)
[2021-03-22 15:15] LABS: BASO # 0.1 10^3/uL (0.0-0.2); BASO % 1.1 % (0.0-1.0); EOS # 0.3 10^3/uL (0.0-0.5); EOS % 3.6 % (0.0-3.0); LYMPH # 2.1 10^3/uL (1.5-5.0); LYMPH % 25.4 % (24.0-44.0); MONO # 0.6 10^3/uL (0.0-0.8); MONO % 7.2 % (2.0-8.0); NEUTROPHILS # 5.2 10^3/uL (1.5-8.5)
[2021-03-22 15:40] LABS: PERCENT SATURATION 8.4 % (13.2-45.0)
== END ==
LOC: M PLALAB 12:05
PROVIDERS: ATTEND Family Medicine
DX: D50.9 Iron deficiency anemia, unspecified (principal)

== ENCOUNTER → 2021-08-14 | Outpatient (CLI) | payer OTHER ==
[2021-08-14 10:50] LABS: BASO # 0.1 10^3/uL (0.0-0.2); BASO % 0.8 % (0.0-1.0); EOS # 0.2 10^3/uL (0.0-0.5); EOS % 2.7 % (0.0-3.0); HEMATOCRIT 43.1 % (36.0-47.0); HEMOGLOBIN 13.9 g/dl (12.0-15.5); LYMPH # 1.6 10^3/uL (1.5-5.0); LYMPH % 17.6 % (24.0-44.0); MEAN CORPUSCULAR HEMOGLOBIN 25.8 pg (27.0-33.0); MEAN CORPUSCULAR HGB CONC 32.3 g/dl (32.0-36.5); MONO # 0.7 10^3/uL (0.0-0.8); MONO % 7.2 % (2.0-8.0); NEUTROPHILS # 6.5 10^3/uL (1.5-8.5); NEUTROPHILS % 71.5 % (36.0-66.0); PLATELET COUNT, AUTOMATED 283 10^3/uL (150-450); RED BLOOD COUNT 5.39 10^6/uL (4.00-5.40)
[2021-08-14 11:08] LABS: HEMOGLOBIN A1c 5.8 %
[2021-08-14 11:19] LABS: C REACTIVE PROTEIN QUANTITATIV 1.13 MG/DL (0.00-0.30); CHOLESTEROL RISK RATIO 2.566 (<5)
[2021-08-14 11:30] LABS: MALB URINE SIEMENS 18.8 MG/L; MAU/CREAT RATIO 6.7 MCG/MG (0.0-30.0)
== END ==
LOC: M LAB 09:31
PROVIDERS: ATTEND Family Medicine
DX: D50.9 Iron deficiency anemia, unspecified (principal); R73.01 Impaired fasting glucose

== ENCOUNTER → 2022-01-15 | Outpatient (CLI) | payer OTHER ==
[2022-01-15 09:50] LABS: BASO # 0.1 10^3/uL (0.0-0.2); BASO % 1.5 % (0.0-1.0); EOS # 0.2 10^3/uL (0.0-0.5); EOS % 3.5 % (0.0-3.0); HEMATOCRIT 45.8 % (36.0-47.0); HEMOGLOBIN 14.5 g/dl (12.0-15.5); LYMPH # 1.5 10^3/uL (1.5-5.0); LYMPH % 22.1 % (24.0-44.0); MEAN CORPUSCULAR HEMOGLOBIN 27.6 pg (27.0-33.0); MEAN CORPUSCULAR HGB CONC 31.7 g/dl (32.0-36.5); MEAN CORPUSCULAR VOLUME 87.1 fl (80.0-96.0); MONO # 0.5 10^3/uL (0.0-0.8); MONO % 7.2 % (2.0-8.0); NEUTROPHILS # 4.5 10^3/uL (1.5-8.5); NEUTROPHILS % 65.6 % (36.0-66.0); PLATELET COUNT, AUTOMATED 290 10^3/uL (150-450); RED BLOOD COUNT 5.26 10^6/uL (4.00-5.40); WHITE BLOOD COUNT 6.8 10^3/uL (4.0-10.0)
[2022-01-15 10:12] LABS: HEMOGLOBIN A1c 5.6 %
[2022-01-15 10:33] LABS: ALBUMIN 4.1 GM/DL (3.2-5.2); BILIRUBIN,TOTAL 0.6 MG/DL (0.2-1.0); CALCIUM LEVEL 9.4 MG/DL (8.8-10.2); CREATININE FOR GFR 1.1 MG/DL (0.55-1.30); GLOMERULAR FILTRATION RATE 53.8 (>45); POTASSIUM SERUM 3.9 MEQ/L (3.5-5.1); TOTAL PROTEIN 7.8 GM/DL (6.4-8.2)
[2022-01-17 11:06] LABS: TOTAL 25(OH) VITAMIN D 74.4 NG/ML (30.0-100.0)
[2022-01-17 11:09] LABS: PTH INTACT 36.6 PG/ML (18.5-88.0)
== END ==
LOC: M LAB 09:02
PROVIDERS: ATTEND Family Medicine
DX: R73.01 Impaired fasting glucose (principal); D50.9 Iron deficiency anemia, unspecified; E55.9 Vitamin D deficiency, unspecified

== ENCOUNTER → 2022-06-04 | Outpatient (CLI) | payer OTHER ==
[~2022-06-04] MED LIST changes: +NYST-38 SS; -NYST50SS SS
[2022-06-04 10:23] LABS: BASO # 0.1 10^3/uL (0.0-0.2); BASO % 1.5 % (0.0-1.0); EOS # 0.5 10^3/uL (0.0-0.5); EOS % 6.1 % (0.0-3.0); HEMATOCRIT 43.7 % (36.0-47.0); HEMOGLOBIN 14.3 g/dl (12.0-15.5); LYMPH # 1.7 10^3/uL (1.5-5.0); MEAN CORPUSCULAR HEMOGLOBIN 28.3 pg (27.0-33.0); MEAN CORPUSCULAR HGB CONC 32.7 g/dl (32.0-36.5); MEAN CORPUSCULAR VOLUME 86.4 fl (80.0-96.0); MONO # 0.6 10^3/uL (0.0-0.8); MONO % 7.7 % (2.0-8.0); NEUTROPHILS # 4.6 10^3/uL (1.5-8.5); NEUTROPHILS % 61.4 % (36.0-66.0); PLATELET COUNT, AUTOMATED 314 10^3/uL (150-450); RED BLOOD COUNT 5.06 10^6/uL (4.00-5.40); WHITE BLOOD COUNT 7.4 10^3/uL (4.0-10.0)
[2022-06-04 10:41] LABS: HEMOGLOBIN A1c 5.4 % (4.0-6.0)
[2022-06-04 10:56] LABS: ALBUMIN 4.1 G/DL (3.2-5.2); ALKALINE PHOSPHATASE 73 U/L (46-116); ALT/SGPT 21 U/L (7.0-40); AST/SGOT 24 U/L (<34); BILIRUBIN,TOTAL 0.7 MG/DL (0.3-1.2); BLOOD UREA NITROGEN 13 MG/DL (9-23); CALCIUM LEVEL 9.7 MG/DL (8.3-10.6); CARBON DIOXIDE LEVEL 30 MMOL/L (20-31); CHLORIDE LEVEL 105 MMOL/L (98-107); CHOLESTEROL LEVEL 140 MG/DL (<200); CHOLESTEROL RISK RATIO 2.75 (<5); CREATININE FOR GFR 0.97 MG/DL (0.55-1.30); GLOMERULAR FILTRATION RATE > 60.0 (>45); GLUCOSE, FASTING 91 MG/DL (74-106); HDL CHOLESTEROL 50.8 MG/DL (>40); LDL CHOLESTEROL 70.6 MG/DL (<100); NON-HDL-C 89.2 MG/DL; POTASSIUM SERUM 4.2 MMOL/L (3.5-5.1); SODIUM LEVEL 139 MMOL/L (136-145); TOTAL PROTEIN 7.1 G/DL (5.7-8.2); TRIGLYCERIDES LEVEL 93 MG/DL (<150)
[2022-06-04 10:57] LABS: VITAMIN B12 LEVEL 511 PG/ML (211-911)
[2022-06-04 11:06] LABS: CREATININE, URINE 257.1 MG/DL; MAU/CREAT RATIO 5.4 MCG/MG (0.0-30.0)
== END ==
LOC: M LAB 09:42
PROVIDERS: ATTEND Family Medicine
DX: D50.9 Iron deficiency anemia, unspecified (principal); R73.01 Impaired fasting glucose; E78.5 Hyperlipidemia, unspecified

== ENCOUNTER → 2022-10-29 | Outpatient (CLI) | payer OTHER ==
[~2022-10-29] MED LIST changes: -AMIT25TA17 PO; +AMIT25TA19 PO; -ROSU20TA5; +ROSU20TA61
[2022-10-29 09:24] LABS: BASO # 0.1 10^3/uL (0.0-0.2); BASO % 1.4 % (0.0-1.0); EOS # 0.5 10^3/uL (0.0-0.5); EOS % 7.1 % (0.0-3.0); HEMATOCRIT 42.6 % (36.0-47.0); LYMPH % 27.5 % (24.0-44.0); MEAN CORPUSCULAR HEMOGLOBIN 27.7 pg (27.0-33.0); MEAN CORPUSCULAR HGB CONC 32.9 g/dl (32.0-36.5); MEAN CORPUSCULAR VOLUME 84.4 fl (80.0-96.0); MONO # 0.5 10^3/uL (0.0-0.8); MONO % 7.1 % (2.0-8.0); NEUTROPHILS # 4.2 10^3/uL (1.5-8.5); NEUTROPHILS % 56.8 % (36.0-66.0); PLATELET COUNT, AUTOMATED 297 10^3/uL (150-450); RED BLOOD COUNT 5.05 10^6/uL (4.00-5.40); WHITE BLOOD COUNT 7.3 10^3/uL (4.0-10.0)
[2022-10-29 09:48] LABS: HEMOGLOBIN A1c 5.7 % (4.0-6.0)
[2022-10-29 09:50] LABS: ALKALINE PHOSPHATASE 66 U/L (46-116); ALT/SGPT 21 U/L (7.0-40); AST/SGOT 20 U/L (<34); BILIRUBIN,TOTAL 0.5 MG/DL (0.3-1.2); BLOOD UREA NITROGEN 5 MG/DL (9-23); CALCIUM LEVEL 9.5 MG/DL (8.3-10.6); CARBON DIOXIDE LEVEL 27 MMOL/L (20-31); CHLORIDE LEVEL 108 MMOL/L (98-107); CREATININE FOR GFR 0.94 MG/DL (0.55-1.30); GLOMERULAR FILTRATION RATE > 60.0 (>45); GLUCOSE, FASTING 85 MG/DL (74-106); POTASSIUM SERUM 3.9 MMOL/L (3.5-5.1); SODIUM LEVEL 144 MMOL/L (136-145); TOTAL PROTEIN 6.9 G/DL (5.7-8.2)
[2022-10-29 09:54] LABS: FERRITIN 66.8 NG/ML (7.3-270.7)
[2022-10-31 14:08] LABS: H PYLORI SERUM QUANT IgG ABY 0.66 (0.00-0.79); INSULIN LEVEL 14.4 uIU/mL (2.6-24.9)
== END ==
LOC: M LAB 08:33
PROVIDERS: ATTEND Family Medicine
DX: R73.01 Impaired fasting glucose (principal); D50.9 Iron deficiency anemia, unspecified; I10 Essential (primary) hypertension

== ENCOUNTER → 2023-05-27 | Outpatient (CLI) | payer OTHER ==
[2023-05-27 10:31] LABS: BASO # 0.1 10^3/uL (0.0-0.2); BASO % 1.5 % (0.0-1.0); EOS # 0.5 10^3/uL (0.0-0.5); EOS % 6.9 % (0.0-3.0); HEMATOCRIT 44.6 % (36.0-47.0); HEMOGLOBIN 14.8 g/dl (12.0-15.5); LYMPH # 1.9 10^3/uL (1.5-5.0); LYMPH % 25.9 % (24.0-44.0); MEAN CORPUSCULAR HEMOGLOBIN 27.7 pg (27.0-33.0); MEAN CORPUSCULAR HGB CONC 33.2 g/dl (32.0-36.5); MEAN CORPUSCULAR VOLUME 83.5 fl (80.0-96.0); MONO # 0.5 10^3/uL (0.0-0.8); MONO % 7.1 % (2.0-8.0); NEUTROPHILS # 4.4 10^3/uL (1.5-8.5); NEUTROPHILS % 58.3 % (36.0-66.0); PLATELET COUNT, AUTOMATED 288 10^3/uL (150-450); RED BLOOD COUNT 5.34 10^6/uL (4.00-5.40); WHITE BLOOD COUNT 7.5 10^3/uL (4.0-10.0)
[2023-05-27 10:55] LABS: ALBUMIN 3.9 G/DL (3.2-5.2); ALKALINE PHOSPHATASE 70 U/L (46-116); ALT/SGPT 20 U/L (7.0-40); AST/SGOT 24 U/L (<34); BILIRUBIN,TOTAL 0.5 MG/DL (0.3-1.2); BLOOD UREA NITROGEN 15 MG/DL (9-23); CALCIUM LEVEL 9.5 MG/DL (8.3-10.6); CARBON DIOXIDE LEVEL 26 MMOL/L (20-31); CHLORIDE LEVEL 107 MMOL/L (98-107); CHOLESTEROL LEVEL 144 MG/DL (<200); CHOLESTEROL RISK RATIO 3.36 (<5); CREATININE FOR GFR 0.98 MG/DL (0.55-1.30); GLOMERULAR FILTRATION RATE > 60.0 (>45); GLUCOSE, FASTING 89 MG/DL (74-106); HDL CHOLESTEROL 42.8 MG/DL (>40); NON-HDL-C 101.2 MG/DL; SODIUM LEVEL 140 MMOL/L (136-145); THYROID STIMULATING HORMONE 3.723 uIU/ML (0.55-4.78); TOTAL 25(OH) VITAMIN D 80.8 NG/ML (20.0-100.0); TOTAL PROTEIN 7.1 G/DL (5.7-8.2); TRIGLYCERIDES LEVEL 126 MG/DL (<150)
[2023-05-27 10:56] LABS: FERRITIN 100.7 NG/ML (7.3-270.7); PTH INTACT 42.3 PG/ML (18.5-88.0)
[2023-05-27 10:58] LABS: FREE T4 0.79 NG/DL (0.89-1.76)
== END ==
LOC: M LAB 09:08
PROVIDERS: ATTEND Family Medicine
DX: I10 Essential (primary) hypertension (principal); D50.9 Iron deficiency anemia, unspecified; E55.9 Vitamin D deficiency, unspecified; E78.5 Hyperlipidemia, unspecified

== ENCOUNTER → 2023-06-05 | Outpatient (REF) | payer OTHER | LOC: M SFHCPLAZ 11:59 | PROVIDERS: ATTEND Family Medicine | DX: Z53.9 Procedure and treatment not carried out, unspecified reason (principal) ==

== ENCOUNTER → 2023-06-14 | Outpatient (REF) | payer OTHER | LOC: M LAB REF 20:53 | PROVIDERS: ATTEND Nurse Practitioner Family | DX: R30.0 Dysuria (principal) ==

== ENCOUNTER → 2023-07-14 | Outpatient (CLI) | payer OTHER | LOC: M SLEEP HO 10:22 | PROVIDERS: ATTEND Family Medicine | DX: G47.33 Obstructive sleep apnea (adult) (pediatric) (principal) ==

== ENCOUNTER → 2023-12-14 | Outpatient (REF) | payer OTHER | LOC: M SFHCPLAZ 15:03 | DX: B34.9 Viral infection, unspecified (principal) ==

== ENCOUNTER → 2024-01-05 | Outpatient (REF) | payer OTHER ==
[~2024-01-05] MED LIST changes: -ROSU20TA61; +ROSU20TA86
== END ==
LOC: M SFHCPLAZ 16:06
DX: R10.13 Epigastric pain (principal); Z53.9 Procedure and treatment not carried out, unspecified reason

== ENCOUNTER → 2024-01-06 | Outpatient (CLI) | payer OTHER ==
[2024-01-06 10:59] LABS: PERCENT SATURATION 16.7 % (13.2-45.0)
== END ==
LOC: M LAB 09:34
DX: R10.13 Epigastric pain (principal)

== ENCOUNTER → 2024-01-06 | Outpatient (CLI) | payer OTHER ==
[2024-01-06 10:35] LABS: BASO # 0.1 10^3/uL (0.0-0.2); BASO % 1.3 % (0.0-1.0); EOS # 0.3 10^3/uL (0.0-0.5); EOS % 4.3 % (0.0-3.0); HEMATOCRIT 41.6 % (36.0-47.0); HEMOGLOBIN 13.3 g/dl (12.0-15.5); LYMPH # 1.7 10^3/uL (1.5-5.0); LYMPH % 22.1 % (24.0-44.0); MEAN CORPUSCULAR HEMOGLOBIN 26.9 pg (27.0-33.0); MONO # 0.5 10^3/uL (0.0-0.8); MONO % 6.8 % (2.0-8.0); NEUTROPHILS # 4.9 10^3/uL (1.5-8.5); NEUTROPHILS % 65.2 % (36.0-66.0); PLATELET COUNT, AUTOMATED 350 10^3/uL (150-450); RED BLOOD COUNT 4.95 10^6/uL (4.00-5.40); WHITE BLOOD COUNT 7.5 10^3/uL (4.0-10.0)
[2024-01-06 10:50] LABS: HEMOGLOBIN A1c 5.4 % (4.0-6.0)
[2024-01-06 11:02] LABS: FREE T4 0.99 NG/DL (0.89-1.76)
[2024-01-06 11:04] LABS: FERRITIN 26.2 NG/ML (7.3-270.7); THYROID STIMULATING HORMONE 1.938 uIU/ML (0.55-4.78)
[2024-01-06 11:06] LABS: THYROGLOBULIN ANTIBODY < 15.0 U/ML (<60.0)
[2024-01-06 11:07] LABS: THYROID PEROXIDASE ANTIBODY 36 U/ML (<60.0)
[2024-01-06 11:23] LABS: CREATININE, URINE 335.1 MG/DL; MAU/CREAT RATIO 1.1 MCG/MG (0.0-30.0)
== END ==
LOC: M LAB 09:32
PROVIDERS: ATTEND Family Medicine
DX: D50.9 Iron deficiency anemia, unspecified (principal); R73.01 Impaired fasting glucose; E78.5 Hyperlipidemia, unspecified

== ENCOUNTER → 2024-01-24 | Outpatient (REF) | payer OTHER ==
[2024-01-25 11:58] LABS: APPEARANCE, URINE CLEAR (CLEAR); BACTERIA, URINE AUTO NEGATIVE (NEGATIVE); BILIRUBIN, URINE AUTO NEGATIVE (NEGATIVE); BLOOD, URINE BLOOD NEGATIVE (NEGATIVE); COLOR, URINE YELLOW (YELLOW); GLUCOSE, URINE (UA) AUTO NEGATIVE (NEGATIVE); KETONE, URINE AUTO NEGATIVE (NEGATIVE); LEUKOCYTE ESTERASE, URINE AUTO NEGATIVE (NEGATIVE); MUCUS, URINE SMALL (NEGATIVE); NITRITE, URINE AUTO NEGATIVE (NEGATIVE); PROTEIN, URINE AUTO NEGATIVE (NEGATIVE); RBC, URINE AUTO 1 /HPF (0-3); SPECIFIC GRAVITY URINE AUTO 1.006 (1.002-1.035); SQUAMOUS EPITHELIAL CELL UR AU 2 /HPF (0-6); UROBILINOGEN, URINE AUTO 0.2 mg/dL (0.0-2.0); WBC, URINE AUTO 0 /HPF (0-3)
== END ==
LOC: M SMT 10:36
PROVIDERS: ATTEND Specialist
DX: N30.10 Interstitial cystitis (chronic) without hematuria (principal)

== ENCOUNTER → 2024-03-09 | Outpatient (CLI) | payer OTHER ==
[2024-03-09 11:15] LABS: BASO # 0.1 10^3/uL (0.0-0.2); BASO % 1.2 % (0.0-1.0); EOS # 0.3 10^3/uL (0.0-0.5); EOS % 3.4 % (0.0-3.0); HEMATOCRIT 42.2 % (36.0-47.0); HEMOGLOBIN 13.5 g/dl (12.0-15.5); LYMPH # 1.7 10^3/uL (1.5-5.0); LYMPH % 21.8 % (24.0-44.0); MEAN CORPUSCULAR HEMOGLOBIN 26.2 pg (27.0-33.0); MEAN CORPUSCULAR VOLUME 81.9 fl (80.0-96.0); MONO # 0.5 10^3/uL (0.0-0.8); MONO % 6.5 % (2.0-8.0); NEUTROPHILS # 5.2 10^3/uL (1.5-8.5); NEUTROPHILS % 66.8 % (36.0-66.0); PLATELET COUNT, AUTOMATED 327 10^3/uL (150-450); RED BLOOD COUNT 5.15 10^6/uL (4.00-5.40); WHITE BLOOD COUNT 7.7 10^3/uL (4.0-10.0)
[2024-03-09 11:36] LABS: C REACTIVE PROTEIN QUANTITATIV < 0.50 MG/DL (<1.0)
[2024-03-09 11:37] LABS: ALBUMIN 3.9 G/DL (3.2-5.2); ALKALINE PHOSPHATASE 69 U/L (35-104); ALT/SGPT 17 U/L (7.0-40); AST/SGOT 21 U/L (<34); BILIRUBIN,TOTAL 0.4 MG/DL (0.3-1.2); BLOOD UREA NITROGEN 8 MG/DL (9-23); CALCIUM LEVEL 10.1 MG/DL (8.3-10.6); CARBON DIOXIDE LEVEL 28 MMOL/L (20-31); CHLORIDE LEVEL 109 MMOL/L (98-107); CHOLESTEROL LEVEL 155 MG/DL (<200); CHOLESTEROL RISK RATIO 3.08 (<5); CREATININE FOR GFR 0.94 MG/DL (0.55-1.30); GLOMERULAR FILTRATION RATE > 60.0 (>45); GLUCOSE, FASTING 93 MG/DL (74-106); HDL CHOLESTEROL 50.3 MG/DL (>40); LDL CHOLESTEROL 81.7 MG/DL (<100); NON-HDL-C 104.7 MG/DL; POTASSIUM SERUM 4.3 MMOL/L (3.5-5.1); SODIUM LEVEL 146 MMOL/L (136-145); TOTAL PROTEIN 7.2 G/DL (5.7-8.2); TRIGLYCERIDES LEVEL 115 MG/DL (<150)
[2024-03-09 11:39] LABS: FERRITIN 24.4 NG/ML (7.3-270.7); VITAMIN B12 LEVEL 447 PG/ML (211-911)
== END ==
LOC: M LAB 10:10
PROVIDERS: ATTEND Family Medicine
DX: K21.9 Gastro-esophageal reflux disease without esophagitis (principal); R73.01 Impaired fasting glucose; D50.9 Iron deficiency anemia, unspecified; E78.5 Hyperlipidemia, unspecified

== ENCOUNTER → 2024-03-30 | Outpatient (CLI) | payer OTHER ==
[2024-03-30 12:15] LABS: BASO # 0.1 10^3/uL (0.0-0.2); BASO % 1.1 % (0.0-1.0); EOS # 0.4 10^3/uL (0.0-0.5); EOS % 4.7 % (0.0-3.0); HEMATOCRIT 44.8 % (36.0-47.0); HEMOGLOBIN 14.2 g/dl (12.0-15.5); LYMPH % 25.3 % (24.0-44.0); MEAN CORPUSCULAR HEMOGLOBIN 26.4 pg (27.0-33.0); MEAN CORPUSCULAR HGB CONC 31.7 g/dl (32.0-36.5); MEAN CORPUSCULAR VOLUME 83.4 fl (80.0-96.0); MONO # 0.6 10^3/uL (0.0-0.8); NEUTROPHILS % 61.8 % (36.0-66.0); PLATELET COUNT, AUTOMATED 300 10^3/uL (150-450); RED BLOOD COUNT 5.37 10^6/uL (4.00-5.40)
[2024-03-30 12:16] LABS: ALBUMIN 4.1 G/DL (3.2-5.2)
[2024-03-30 12:23] LABS: PERCENT SATURATION 16.9 % (13.2-45.0)
[2024-03-30 12:27] LABS: FERRITIN 21.6 NG/ML (7.3-270.7)
== END ==
LOC: M LAB 10:16
PROVIDERS: ATTEND Orthopaedic Surgery
DX: Z01.818 Encounter for other preprocedural examination (principal); M25.561 Pain in right knee

== ENCOUNTER → 2024-04-10 | Outpatient (CLI) | payer OTHER ==
[~2024-04-10] MED LIST changes: +ISOVUE-370 76% 100ML VIAL As Ordered ONE
== END ==
LOC: M RAD 16:01
PROVIDERS: ATTEND Family Medicine
DX: R10.13 Epigastric pain (principal)

== ENCOUNTER → 2024-06-16 | Outpatient (CLI) | payer OTHER ==
[~2024-06-16] MED LIST changes: -ISOVUE-370 76% 100ML VIAL As Ordered ONE
[2024-06-16 11:08] LABS: BASO # 0.1 10^3/uL (0.0-0.2); BASO % 1.1 % (0.0-1.0); EOS # 0.4 10^3/uL (0.0-0.5); EOS % 5.6 % (0.0-3.0); HEMATOCRIT 41.7 % (36.0-47.0); HEMOGLOBIN 13.6 g/dl (12.0-15.5); LYMPH # 1.7 10^3/uL (1.5-5.0); LYMPH % 22.4 % (24.0-44.0); MEAN CORPUSCULAR HEMOGLOBIN 27.6 pg (27.0-33.0); MEAN CORPUSCULAR HGB CONC 32.6 g/dl (32.0-36.5); MEAN CORPUSCULAR VOLUME 84.6 fl (80.0-96.0); MONO # 0.5 10^3/uL (0.0-0.8); NEUTROPHILS # 4.7 10^3/uL (1.5-8.5); NEUTROPHILS % 63.6 % (36.0-66.0); PLATELET COUNT, AUTOMATED 295 10^3/uL (150-450); RED BLOOD COUNT 4.93 10^6/uL (4.00-5.40); WHITE BLOOD COUNT 7.5 10^3/uL (4.0-10.0)
[2024-06-16 11:31] LABS: C REACTIVE PROTEIN QUANTITATIV < 0.50 MG/DL (<1.0)
[2024-06-16 11:32] LABS: ALBUMIN 3.6 G/DL (3.2-5.2); ALKALINE PHOSPHATASE 70 U/L (35-104); ALT/SGPT 19 U/L (7.0-40); AST/SGOT 22 U/L (<34); BILIRUBIN,TOTAL 0.5 MG/DL (0.3-1.2); BLOOD UREA NITROGEN 11 MG/DL (9-23); CALCIUM LEVEL 9.4 MG/DL (8.3-10.6); CARBON DIOXIDE LEVEL 30 MMOL/L (20-31); CHLORIDE LEVEL 107 MMOL/L (98-107); CHOLESTEROL LEVEL 131 MG/DL (<200); CHOLESTEROL RISK RATIO 3.11 (<5); CREATININE FOR GFR 0.96 MG/DL (0.55-1.30); GLOMERULAR FILTRATION RATE > 60.0 (>45); GLUCOSE, FASTING 95 MG/DL (74-106); LDL CHOLESTEROL 65.6 MG/DL (<100); POTASSIUM SERUM 4.1 MMOL/L (3.5-5.1); SODIUM LEVEL 145 MMOL/L (136-145); TOTAL PROTEIN 6.8 G/DL (5.7-8.2); TRIGLYCERIDES LEVEL 117 MG/DL (<150)
[2024-06-16 11:34] LABS: FERRITIN 32.1 NG/ML (7.3-270.7); VITAMIN B12 LEVEL 457 PG/ML (211-911)
== END ==
LOC: M LAB 09:41
PROVIDERS: ATTEND Family Medicine
DX: K21.9 Gastro-esophageal reflux disease without esophagitis (principal); R73.01 Impaired fasting glucose; D50.9 Iron deficiency anemia, unspecified; E78.5 Hyperlipidemia, unspecified

== ENCOUNTER 2024-10-31 13:07 | Emergency (ER) | payer OTHER ==
[~2024-10-31] VITALS: Ht 162.6 cm; Wt 84.1 kg
[~2024-10-31 13:07] MED LIST changes: -PANT40TA29; +PANT40TA29 PO; -ROSU20TA86; +ROSU20TA86 PO
[2024-10-31 13:18] VITALS: TEMP 97
[2024-10-31 14:04] LABS: BASO # 0.1 10^3/uL (0.0-0.2); BASO % 0.6 % (0.0-1.0); EOS # 0.1 10^3/uL (0.0-0.5); EOS % 0.6 % (0.0-3.0); LYMPH # 1.1 10^3/uL (1.5-5.0); LYMPH % 11.6 % (24.0-44.0); MONO # 0.3 10^3/uL (0.0-0.8); MONO % 3.7 % (2.0-8.0); NEUTROPHILS # 7.7 10^3/uL (1.5-8.5); NEUTROPHILS % 83.0 % (36.0-66.0); PLATELET COUNT, AUTOMATED 279 10^3/uL (150-450)
[2024-10-31 14:12] LABS: ALT/SGPT 23.0 U/L (7.0-40); AST/SGOT 38.0 U/L (<34); CALCIUM LEVEL 9.0 MG/DL (8.3-10.6); CARBON DIOXIDE LEVEL 25.0 MMOL/L (20-31); CHLORIDE LEVEL 107.0 MMOL/L (98-107); CREATININE FOR GFR 0.88 MG/DL (0.55-1.30); GLOMERULAR FILTRATION RATE 73.3 (>45); POTASSIUM SERUM 4.3 MMOL/L (3.5-5.1); SODIUM LEVEL 143.0 MMOL/L (136-145)
[2024-10-31 14:18] LABS: INR 0.92
[2024-10-31] MEDS: MECLIZINE 25 MG TABLET PO ONE ×2 (14:35→19:33)
[2024-10-31] MEDS ORDERED: CALCD50TA PO (16:11)
[2024-10-31] MEDS ORDERED: THERTAB19 PO (16:11)
[2024-10-31] MEDS ORDERED: VITA200038 PO (16:11)
[2024-10-31] MEDS ORDERED: HOME MED LIST COMPLETE! XX SCH (16:15)
[2024-10-31] MEDS ORDERED: MECL-209 PO (18:20)
[2024-10-31 19:30] VITALS: BP 132/76; O2SAT 96
== END 2024-10-31 19:40 | disposition home or self-care (01) ==
LOC: M ED 13:07 → EDBD 13:07 → M ED 19:40
DX: H81.4 Vertigo of central origin (principal); I25.2 Old myocardial infarction; G47.33 Obstructive sleep apnea (adult) (pediatric); K58.9 Irritable bowel syndrome, unspecified; E78.5 Hyperlipidemia, unspecified; F10.10 Alcohol abuse, uncomplicated; Z88.5 Allergy status to narcotic agent; Z79.899 Other long term (current) drug therapy; Z79.810 Long term (current) use of selective estrogen receptor modulators (SERMs)

== ENCOUNTER → 2024-11-11 | Outpatient (CLI) | payer OTHER ==
[~2024-11-11] MED LIST changes: +CALCD50TA PO; +MECL-209 PO; +THERTAB19 PO; +VITA200038 PO
[2024-11-11 14:12] LABS: BASO # 0.1 10^3/uL (0.0-0.2); BASO % 1.2 % (0.0-1.0); EOS # 0.4 10^3/uL (0.0-0.5); EOS % 5.4 % (0.0-3.0); LYMPH # 1.8 10^3/uL (1.5-5.0); LYMPH % 25.0 % (24.0-44.0); MONO # 0.6 10^3/uL (0.0-0.8); MONO % 7.7 % (2.0-8.0); NEUTROPHILS # 4.4 10^3/uL (1.5-8.5); NEUTROPHILS % 60.6 % (36.0-66.0); PLATELET COUNT, AUTOMATED 316 10^3/uL (150-450)
[2024-11-11 14:45] LABS: TOTAL 25(OH) VITAMIN D 96.2 NG/ML (20.0-100.0)
[2024-11-11 14:48] LABS: ALT/SGPT 17 U/L (7.0-40); AST/SGOT 26 U/L (<34); C REACTIVE PROTEIN QUANTITATIV < 0.50 MG/DL (<1.0); CALCIUM LEVEL 9.5 MG/DL (8.3-10.6); CARBON DIOXIDE LEVEL 26 MMOL/L (20-31); CHLORIDE LEVEL 108 MMOL/L (98-107); CREATININE FOR GFR 0.92 MG/DL (0.55-1.30); GLOMERULAR FILTRATION RATE 69.5 (>45); POTASSIUM SERUM 4.1 MMOL/L (3.5-5.1); SODIUM LEVEL 145 MMOL/L (136-145)
[2024-11-11 15:29] LABS: ESTIMATED AVERAGE GLUCOSE 117.0 MG/DL (60-110)
[2024-11-11 16:15] LABS: PTH INTACT 39.5 PG/ML (18.5-88.0)
== END ==
LOC: M PLALAB 09:38
PROVIDERS: ATTEND Family Medicine
DX: K21.9 Gastro-esophageal reflux disease without esophagitis (principal); R73.01 Impaired fasting glucose; D50.9 Iron deficiency anemia, unspecified; E55.9 Vitamin D deficiency, unspecified